=== PATIENT | female | born 1930 | race Caucasian/White ===

== ENCOUNTER 2016-10-31 13:24 | Inpatient (IN) | payer MEDICARE, BC ==
[2016-11-01] MEDS ORDERED: AMLO2.5T PO (09:28)
[2016-11-01] MEDS ORDERED: GAS-80CH CHEW (09:28)
[2016-11-01] MEDS ORDERED: ASPI-147 PO (09:28)
[2016-11-01] MEDS ORDERED: CHOL20003 PO (09:28)
[2016-11-01] MEDS ORDERED: CAL-150C PO (09:28)
[2016-11-01] MEDS ORDERED: LUTE25CA PO (09:28)
[2016-11-01] MEDS ORDERED: OMEP20TA PO (09:28)
[2016-11-01] MEDS ORDERED: CYAN1TAB24 PO (09:28)
[2016-11-01] MEDS ORDERED: LOSA100T PO (09:28)
[2016-11-01] MEDS ORDERED: ACET500C PO (09:28)
[2016-11-01] MEDS ORDERED: FLOR250C PO (09:28)
[2016-11-01] MEDS ORDERED: CENTTAB PO (09:28)
[2016-11-11] MEDS ORDERED: ONDANSETRON HCL 4 MG/2 ML VIAL IV PUSH ONE (09:58)
[2016-11-11] MEDS ORDERED: NEOSTIGMINE 3 MG/3 ML SYR IV ONE (09:58)
[2016-11-11] MEDS ORDERED: PROPOFOL 200 MG/20 ML AMP IV ONE (09:58)
[2016-11-11] MEDS ORDERED: ePHEDrine/NS 25 MG/5 ML SYR IV ONE (09:58)
[2016-11-11] MEDS ORDERED: LACTATED RINGER'S 1000 ML INJ 2,000 ML IV ONE (09:58)
[2016-11-11] MEDS ORDERED: VANCOMYCIN 1000 MG/NS 250 ML (for <70 kg) IV SCH ×2 (11:00)
[2016-11-11] MEDS ORDERED: INSULIN HUMAN REGULAR 1,000 UNITS/10 ML VIAL SQ PRN (11:00)
[2016-11-11] MEDS ORDERED: SODIUM CHLORID 0.9% 500 ML IV SCH (11:00)
[2016-11-11] MEDS ORDERED: CHLORHEXIDINE GLUCONATE 4% SOLN 120 ML BTL TOP SCH (11:00)
[2016-11-11] MEDS ORDERED: METOPROLOL TARTRATE 25 MG TAB PO PRN (11:00)
[2016-11-11] MEDS ORDERED: LACTATED RINGER'S 1000 ML IV SCH (11:00)
[2016-11-11] MEDS ORDERED: ceFAZolin 2 GM PREMIX 50 ML IV SCH (11:00)
[2016-11-11 11:21] VITALS: BP 159/73; PULSE 101; RESP 20; TEMP 98.1; O2SAT 98
[2016-11-11] MEDS ORDERED: GENTAMICIN SULFATE 80 MG/2 ML VIAL ONE (11:55)
[2016-11-11] MEDS ORDERED: ACETAMINOPHEN 1000 MG/100 ML VIAL IV ONE (12:14)
[2016-11-11] MEDS ORDERED: SODIUM CHLORIDE 0.9% FLUSH 5 ML FLUSH IVF PRN (14:00)
[2016-11-11] MEDS ORDERED: BEDSIDE COMMODE1 MI1 (14:00)
[2016-11-11] MEDS ORDERED: NALOXONE HCL 0.4 MG/ML AMP IV PRN (14:00)
[2016-11-11] MEDS: PCA - TOTAL MG MORPHINE DELIVERED PER SHIFT SCH ×2 (14:00→22:00)
[2016-11-11] MEDS: SODIUM CHLORIDE 0.9% FLUSH 5 ML FLUSH IVF SCH ×2 (14:00→21:00)
[2016-11-11] MEDS ORDERED: MORPHINE SULFATE 30 MG/30 ML PCA IV SCH (14:00)
[2016-11-11] MEDS ORDERED: SIMETHICONE 80 MG CHEWABLE TAB CHEW PRN (14:00)
[2016-11-11] MEDS ORDERED: ZOLPIDEM TARTRATE 5 MG TAB PO PRN (14:00)
[2016-11-11] MEDS ORDERED: ALUMINUM/MAGNESIUM/SIMETH 30 ML CUP PO PRN (14:00)
[2016-11-11] MEDS ORDERED: ONDANSETRON HCL 4 MG/2 ML VIAL IVP PRN (14:00)
[2016-11-11] MEDS ORDERED: Post-op Orders (for Pharmacy) MISC XX ONE (14:00)
--- NOTE | 2016-11-11 14:01 | HHI.FF ---
Face to Face Verification Diagnosis: (1) Osteoarthritis of left hip Physical Therapy Gait training Hip: Total hip, Protocol: Left, Posterior hip precautions Canvas Knee Splint: Other (when sleeping at night for first 4 weeks ) Right LE Weight Bearing: WB as tolerated Left LE Weight Bearing: WB as tolerated Nursing RN Days per Week: 3 x Week(s): 2 Nursing: Dressing changes (clean incision with alcohol and apply dry sterile dressing ) Additional Instructions Pt/INR q Friday and , call or text results to Caron MCDERMOTT [phone] Goal INR 1.5-1.8 I have seen patient Yanet Nadia Pereira on 11/11/16. My clinical findings support the need for the requested home health care services because: High risk of falls I certify that my clinical findings support that this patient is homebound because: Post-op weakness Unsteady gait/balance Rodolfo Randle MD Nov 11, 2016 14:01
[2016-11-11] MEDS ORDERED: *morphine SULFATE 8 MG/ML PERIprocedure ONLY ONE (14:07)
[2016-11-11] MEDS ORDERED: fentaNYL CITRATE 250 MCG/5 ML AMP ONE (14:09)
[2016-11-11] MEDS ORDERED: DO NOT ADM ANY ANTICOAGULANT DRUGS XX PRN (14:15)
[2016-11-11] MEDS ORDERED: PILL SPLITTER OTHER PRN (14:30)
[2016-11-11] MEDS: LACTATED RINGER'S 1000 ML INJ 1,000 ML IV SCH (14:30)
--- NOTE | 2016-11-11 15:07 | RADRPT ---
EXAM DATE/TIME: 11/11/2016 13:59 [place] COMPARISON: No previous studies available for comparison. INDICATIONS : Post-op left hip replacement. MEDICAL HISTORY : None. SURGICAL HISTORY : Hysterectomy. Appendectomy. ENCOUNTER: Initial ACUITY: 1 day PAIN SCORE: Non-responsive. LOCATION: Left hip. FINDINGS: 2 AP views of the pelvis were obtained as well as a crosstable lateral view of the left hip. This dem onstrates the patient is status post bilateral hip arthroplasty. This is remote on the right and new on the left with surrounding soft tissue swelling and gas. The femoral acetabular components are inta ct and in normal alignment. There is diffuse osteopenia. CONCLUSION: Expected postoperative changes status post left hip arthroplasty. Milton Muñiz MD on November 11, 2016 at 15:04 Board Certified Radiologist. This report was verified electronically.
--- NOTE | 2016-11-11 17:47 | HHI.PR ---
Immediate Post Op Note Procedure Date: Nov 11, 2016 Pre Op Diagnosis: L Hip OA Post Op Diagnosis: Same Surgeon: Rama [employer] Car Driver(s): Caron Correa PA-C Procedure: L THR Complications: None Specimen(s) removed: None Estimated blood loss: 200 cc Anesthesia: General Drains: None Patient to: PACU Patient Condition: Good Implant/Devices: SEE IMPLANT LOG (if applicable) Date/Time of Procedure: SEE SURGICAL CARE RECORD Rodolfo Randle MD Nov 11, 2016 17:47
[2016-11-11 20:21] VITALS: BP 143/66; PULSE 84; RESP 18; TEMP 97.1; O2SAT 98
--- NOTE | 2016-11-11 20:32 | PD.CONS ---
HPI Service [facility] Hospitalists Consult Requested By Rodolfo Hodgson Reason for Consult Medical management Primary Care Physician Non-Staff Diagnoses: History of Present Illness This is an 86-year-old female with past medical history significant for ARTHRITIS of the left hip stated below presents to [facility] for elective left hip arthroplasty. The patient states that she has had pain in the left hip for several years. The patient. With Dr. Reilly and conservative measures for treatment failed. The patient otherwise denies any chest pain, shortness of breath, pain in left hip is minimal except when she moves extremity. States she has intact sensations of lower extremities. Denies cough, abdominal pain or diarrhea as well as dysuria. Review of Systems Except as stated in HPI: all other systems reviewed are Neg Past Family Social History Allergies: Coded Allergies: Erythromycin (Verified Allergy, Severe, STOMACH UPSET, 11/01/16) Amoxicillin (Verified Adverse Reaction, Severe, Diarrhea, 11/01/16) Epinephrine (Verified Adverse Reaction, Severe, INCREASE HEART RATE, ) Uncoded Allergies: SPLENDA (Allergy, Severe, Swelling, 11/20/12) Past Medical History Breast cancer- 10 years ago treated with lumpectomy and radiation. Left arm Lymphedema HTN Arthritis Skin cancer Diverticulosis Gastritis/GERD C difficile diarrhea- 2012 Past Surgical History Hysterectomy Appendectomy Right hip replacement - 10 years ago Lumpectomy Cataract Carpal tunnel surgery Reported Medications 1. Acetaminophen 500 mg by mouth every 4 hours when necessary for pain 1-7. 2. Losartan 100 mg by mouth daily. 3. Crestor 2050 minutes by mouth daily. 4. Simethicone 80 mg 2 4 times a day when necessary for retention. 5. Amlodipine 2.5 mg by mouth daily. 6. Multivitamins 1 tab by mouth daily. 7. Aspirin 81 mg by mouth daily. 8. Lutein - Zeaxanthin 25 - 5 mg po daily 9. Omeprazole 20 mg by mouth daily. 10. Calcium Citrate 150 mg by mouth daily 11. Cyanocobalamin 500 g by mouth daily. 12. Cholecalciferol 2000 units by mouth daily. Active Ordered Medications Current Medications Medications (Trade) Dose Ordered Sig/Nighat Route Start Time Stop Time Status Last Admin (Hibiclens 4% Top Soln) 1 applic ONCE TOP 11/11/16 11:00 11/14/16 10:59 (Norvasc) 2.5 mg DAILY PO 11/12/16 09:00 (Cozaar) 100 mg DAILY PO 11/12/16 09:00 (Protonix) 20 mg DAILY PO 11/12/16 09:00 (Mylicon Chew) 80 mg QID PRN CHEW 11/11/16 14:00 Patient Own Medication 250 ea 250 ea DAILY PO 11/12/16 09:00 Future Hold (Lr 1000 ml Inj) 1,000 ml @ 80 mls/hr [id number] IV 11/11/16 13:54 11/11/16 14:30 (NS Flush) 2 ml UNSCH PRN IVF 11/11/16 14:00 IV Flush 2 ml 2 ml BID IVF 11/11/16 14:00 (Ancef Inj/NS Inj) 100 ml @ 200 mls/hr Q6H IV 11/11/16 18:00 11/12/16 06:29 11/11/16 19:04 (Coumadin) Follow Sliding Scale... DAILY@1600 PO 11/12/16 16:00 UNV ([place] 5-325 Mg) 1 tab Q4H PRN PO 11/11/16 14:00 ([place] 5-325 Mg) 2 tab Q4H PRN PO 11/11/16 14:00 (Zofran Inj) 4 mg Q6H PRN IVP 11/11/16 14:00 (Colace) 100 mg BID PO 11/12/16 21:00 (Mag-Al Plus Susp Liq) 30 ml Q6H PRN PO 11/11/16 14:00 (Ambien) 5 mg HS PRN PO 11/11/16 14:00 (Narcan Inj) 0.4 mg UNSCH PRN IV 11/11/16 14:00 (Morphine 1 Mg/ ml LEARNING SUPPORT ASSISTANT) 30 mg UNSCH IV 11/11/16 14:00 11/11/16 14:30 LEARNING SUPPORT ASSISTANT Dosage Infused (Pha) 1 Q8HR .XX 11/11/16 14:00 Miscellaneous Information ALL NURSING DEPARTME... UNSCH PRN XX 11/11/16 14:15 11/12/16 14:14 (Pill Splitter) 1 ea UNSCH PRN OTHER 11/11/16 14:30 (Coumadin Booklet) 1 ONCE ONCE XX 11/12/16 16:00 11/12/16 16:01 Family History Patient states that patient's mother of lung cancer although she was a nonsmoker. Father of prostate cancer. Social History She denies smoking. Patient drinks a glass of wine with dinner. Physical Exam Vital Signs Vital Signs Date Time Temp Pulse Resp B/P Pulse Ox O2 Delivery O2 Flow Rate FiO2 11/11/16 17:00 97.9 92 14 119/70 97 Room Air 11/11/16 16:00 77 14 149/76 100 11/11/16 15:00 77 12 145/72 99 11/11/16 14:45 66 12 153/75 99 11/11/16 14:30 80 14 158/78 99 11/11/16 14:30 12 11/11/16 14:15 101 14 154/81 99 11/11/16 14:00 79 12 152/88 99 Nasal Cannula 2 11/11/16 13:57 97.5 86 12 145/90 98 Nasal Cannula 2 11/11/16 11:21 98.1 101 20 159/73 98 Physical Exam GENERAL: This is a well-nourished, well-developed patient, in no apparent distress. SKIN: No rashes, ecchymoses or lesions. Cool and dry. HEAD: Atraumatic. Normocephalic. No temporal or scalp tenderness. EYES: Pupils equal round and reactive. Extraocular motions intact. No scleral icterus. No injection or drainage. ENT: Nose without bleeding, purulent drainage or septal hematoma. Throat without erythema, tonsillar hypertrophy or exudate. Uvula midline. Airway patent. NECK: Trachea midline. No JVD or lymphadenopathy. Supple, nontender, no meningeal signs. CARDIOVASCULAR: Regular rate and rhythm without murmurs, gallops, or rubs. RESPIRATORY: Clear to auscultation. Breath sounds equal bilaterally. No wheezes , rales, or rhonchi. GASTROINTESTINAL: Abdomen soft, non-tender, nondistended. No hepato-splenomegaly , or palpable masses. No guarding. MUSCULOSKELETAL: Extremities without clubbing, cyanosis, or edema. No joint tenderness, effusion, or edema noted. No calf tenderness. Negative Homans sign bilaterally. There is a dressing covering the surgical incision which is clean , dry and intact. There are good pulses in bilateral lower extremities. NEUROLOGICAL: Awake and alert. Cranial nerves II through XII intact. Motor and sensory grossly within normal limits. Five out of 5 muscle strength in all muscle groups. Normal speech. Assessment of the left lower extremity is limited secondary to pain. Laboratory Laboratory Tests Test 11/11/16 11:18 Blood Type A NEGATIVE Antibody Screen NEGATIVE Crossmatch Leukocyte-Reduced Red Blood Cells Blood Bank Comment Imaging Last Impressions Hip and Pelvis X-Ray 11/11/16 0000 Signed Impressions: Service Date/Time: Friday, November 11, 2016 13:59 - CONCLUSION: Expected postoperative changes status post left hip arthroplasty. Milton Muñiz MD Reviewed by me Assessment and Plan Problem List: (1) Osteoarthritis of left hip ICD Code: M16.12 Status: Acute Plan: The patient is status post left hip arthroplasty. On tingling and pain control as per orthopedic surgery recommendations. The patient currently on a morphine LEARNING SUPPORT ASSISTANT pump. (2) HTN (hypertension) ICD Code: I10 Status: Acute Plan: Her pressure slightly elevated into the 150s systolic.. Continue home antihypertensive medications. The patient currently on losartan 100 mg by mouth daily. We'll consider starting another antihypertensive if BP remains elevated. (3) H/O Clostridium difficile infection ICD Code: Z86.19 Status: Acute Plan: Continue probiotics including yodit store and simethicone for gas retention. (4) GERD (gastroesophageal reflux disease) ICD Code: K21.9 Status: Acute Plan: No active symptoms of GERD. Continue PPI. Problem Qualifiers (1) Osteoarthritis of left hip: Qualified Code: M16.12 - Primary osteoarthritis of left hip (2) HTN (hypertension): Qualified Code: I10 - Essential hypertension Cassius Velázquez MD Nov 11, 2016 20:32
[2016-11-11 21:56] LABS: AUTOMATED NEUTROPHIL # 8.7 TH/MM3 (1.8-7.7); BASOPHIL % 0.1 % (0.0-2.0); EOSINOPHIL % 0.1 % (0.0-4.0); HEMATOCRIT 35.3 % (35.0-46.0); HEMO FLAGS DIFF FINAL; LYMPH % 8.7 % (9.0-44.0); LYMPHOCYTE # 0.9 TH/MM3 (1.0-4.8); MEAN CELL VOLUME 95.3 FL (80.0-100.0); MEAN CORPUSCULAR HEMOGLOBIN 33.2 PG (27.0-34.0); MEAN CORPUSCULAR HGB CONC 34.8 % (32.0-36.0); MONO % 6.5 % (0.0-8.0); NEUT % 84.6 % (16.0-70.0); PLATELET COUNT 184 TH/MM3 (150-450); RED CELL DISTRIBUTION WIDTH 11.9 % (11.6-17.2); WHITE BLOOD COUNT 10.3 TH/MM3 (4.0-11.0)
[2016-11-11 22:11] LABS: ALKALINE PHOSPHATASE 76 U/L (45-117); ALT (GPT) 58 U/L (10-53); ANION GAP 7 MEQ/L (5-15); AST (GOT) 52 U/L (15-37); BICARBONATE 27.7 MEQ/L (21.0-32.0); BLOOD UREA NITROGEN 12 MG/DL (7-18); CHLORIDE 105 MEQ/L (98-107); GLOMERULAR FILTRATION RATE 69 ML/MIN (>89); MAGNESIUM 1.7 MG/DL (1.5-2.5); POTASSIUM 3.8 MEQ/L (3.5-5.1); SODIUM (NA) 140 MEQ/L (136-145); TOTAL BILIRUBIN ADULT 0.7 MG/DL (0.2-1.0)
[2016-11-12] VITALS (9 sets, daily range): BP systolic 90–146; BP diastolic 47–71; PULSE 88–114; RESP 16–19; TEMP 97.9–99.7; O2SAT 94–98
[2016-11-12] MEDS: PCA - TOTAL MG MORPHINE DELIVERED PER SHIFT SCH (05:51)
--- NOTE | 2016-11-12 06:51 | PD.ORT.PN ---
Subjective Subjective Remarks POD#1 L THR No sob,no chest pain Explained to patient operative findings Objective Vitals Vital Signs Date Time Temp Pulse Resp B/P Pulse Ox O2 Delivery O2 Flow Rate FiO2 11/12/16 04:00 99.3 98 17 146/67 96 11/12/16 01:46 95 11/12/16 00:00 99.0 88 16 136/71 95 11/11/16 20:21 97.1 84 18 143/66 98 11/11/16 17:00 97.9 92 14 119/70 97 Room Air 11/11/16 16:00 77 14 149/76 100 11/11/16 15:00 77 12 145/72 99 11/11/16 14:45 66 12 153/75 99 11/11/16 14:30 80 14 158/78 99 11/11/16 14:30 12 11/11/16 14:15 101 14 154/81 99 11/11/16 14:00 79 12 152/88 99 Nasal Cannula 2 11/11/16 13:57 97.5 86 12 145/90 98 Nasal Cannula 2 11/11/16 11:21 98.1 101 20 159/73 98 I/O 11/11/16 11/11/16 11/11/16 11/12/16 11/12/16 11/12/16 07:00 15:00 23:00 07:00 15:00 23:00 Intake Total 800 ml 475 ml Output Total 250 ml Balance 550 ml 475 ml Intake IV Total 475 ml Other 800 ml Output Estimated Blood Loss 250 ml # Voids 1 Result Diagram: 11/11/16211411/11/162114 Objective Remarks N/V intact Neg basim's sign;no calf tenderness No LLD Assessment & Plan Assessment and Plan Ortho stable PT,rehab Coumadin for DVT prophylaxsis D/C home on 11/13 or 11/14 Rodolfo Randle MD Nov 12, 2016 06:51
[2016-11-12] MEDS: LOSARTAN 50 MG TAB PO SCH (08:16)
[2016-11-12] MEDS: amLODIPine BESYLATE 5 MG TAB PO SCH (08:16)
[2016-11-12] MEDS: PANTOPRAZOLE SOD 20 MG DELAYED RELEASE TAB PO SCH (08:16)
[2016-11-12 08:19] LABS: PROTHROMBIN TIME - PATIENT 11.4 SEC (9.8-11.6)
[2016-11-12] MEDS: ACETAMINOPHEN/HYDROcodone 325 MG/5 MG TAB PO PRN ×3 (08:20→17:33)
[2016-11-12 08:21] LABS: AUTOMATED NEUTROPHIL # 6.6 TH/MM3 (1.8-7.7); BASOPHIL % 0.3 % (0.0-2.0); EOSINOPHIL % 0.4 % (0.0-4.0); HEMATOCRIT 35.2 % (35.0-46.0); HEMO FLAGS DIFF FINAL; LYMPH % 13.6 % (9.0-44.0); LYMPHOCYTE # 1.1 TH/MM3 (1.0-4.8); MEAN CELL VOLUME 96.6 FL (80.0-100.0); MEAN CORPUSCULAR HEMOGLOBIN 32.5 PG (27.0-34.0); MEAN CORPUSCULAR HGB CONC 33.7 % (32.0-36.0); MONO % 6.8 % (0.0-8.0); NEUT % 78.9 % (16.0-70.0); PLATELET COUNT 171 TH/MM3 (150-450); RED BLOOD COUNT 3.65 MIL/MM3 (4.00-5.30); RED CELL DISTRIBUTION WIDTH 12.2 % (11.6-17.2); WHITE BLOOD COUNT 8.4 TH/MM3 (4.0-11.0)
[2016-11-12] MEDS: SODIUM CHLORIDE 0.9% FLUSH 5 ML FLUSH IVF SCH ×2 (08:23→21:09)
[2016-11-12] MEDS: LACTATED RINGER'S 1000 ML INJ 1,000 ML IV SCH ×2 (08:25→14:54)
[2016-11-12 08:53] LABS: ALKALINE PHOSPHATASE 75 U/L (45-117); ALT (GPT) 42 U/L (10-53); ANION GAP 6 MEQ/L (5-15); AST (GOT) 31 U/L (15-37); BLOOD UREA NITROGEN 10 MG/DL (7-18); CHLORIDE 104 MEQ/L (98-107); GLOMERULAR FILTRATION RATE 60 ML/MIN (>89); MAGNESIUM 1.7 MG/DL (1.5-2.5); POTASSIUM 3.8 MEQ/L (3.5-5.1); SODIUM (NA) 138 MEQ/L (136-145); TOTAL BILIRUBIN ADULT 0.6 MG/DL (0.2-1.0)
[2016-11-12] MEDS ORDERED: SACCHAROMYCES BOULARDII 250 MG PO SCH (09:00)
[2016-11-12] MEDS: MAGNESIUM HYDROXIDE SUSP 30 ML CUP PO SCH ×2 (11:56→21:09)
[2016-11-12] MEDS: WARFARIN SOD 5 MG TAB PO SCH (12:52)
--- NOTE | 2016-11-12 14:47 | HHI.PR ---
Subjective Remarks No major overnight events. Denies chest pain shows of breath Pain is controlled Denies abdominal pain, nausea or vomiting Objective Vitals Vital Signs Date Time Temp Pulse Resp B/P Pulse Ox O2 Delivery O2 Flow Rate FiO2 11/12/16 11:58 98.7 105 16 115/68 94 11/12/16 10:54 97 21 11/12/16 08:00 99.7 98 16 138/65 98 11/12/16 04:00 99.3 98 17 146/67 96 11/12/16 01:46 95 11/12/16 00:00 99.0 88 16 136/71 95 11/11/16 20:21 97.1 84 18 143/66 98 11/11/16 17:00 97.9 92 14 119/70 97 Room Air 11/11/16 16:00 77 14 149/76 100 11/11/16 15:00 77 12 145/72 99 I/O 11/11/16 11/11/16 11/11/16 11/12/16 11/12/16 11/12/16 07:00 15:00 23:00 07:00 15:00 23:00 Intake Total 800 ml 475 ml 540 ml Output Total 250 ml Balance 550 ml 475 ml 540 ml Intake Oral 540 ml IV Total 475 ml Other 800 ml Output Estimated Blood Loss 250 ml # Voids 1 2 Result Diagram: 11/12/16 0743 11/12/16 0743 Imaging Last Impressions Hip and Pelvis X-Ray 11/11/16 0000 Signed Impressions: Service Date/Time: Friday, November 11, 2016 13:59 - CONCLUSION: Expected postoperative changes status post left hip arthroplasty. Milton Muñiz MD Objective Remarks GENERAL: This is a well-nourished, well-developed patient, in no apparent distress. SKIN: No rashes, ecchymoses or lesions. Cool and dry. HEAD: Atraumatic. Normocephalic. No temporal or scalp tenderness. EYES: Pupils equal round and reactive. Extraocular motions intact. No scleral icterus. No injection or drainage. ENT: Nose without bleeding, purulent drainage or septal hematoma. Throat without erythema, tonsillar hypertrophy or exudate. Uvula midline. Airway patent. NECK: Trachea midline. No JVD or lymphadenopathy. Supple, nontender, no meningeal signs. CARDIOVASCULAR: Regular rate and rhythm without murmurs, gallops, or rubs. RESPIRATORY: Clear to auscultation. Breath sounds equal bilaterally. No wheezes , rales, or rhonchi. GASTROINTESTINAL: Abdomen soft, non-tender, nondistended. No hepato-splenomegaly , or palpable masses. No guarding. MUSCULOSKELETAL: Extremities without clubbing, cyanosis, or edema. No joint tenderness, effusion, or edema noted. No calf tenderness. Negative Homans sign bilaterally. There is a dressing covering the surgical incision which is clean , dry and intact. There are good pulses in bilateral lower extremities. NEUROLOGICAL: Awake and alert. Cranial nerves II through XII intact. Motor and sensory grossly within normal limits. Five out of 5 muscle strength in all muscle groups. Normal speech. Assessment of the left lower extremity is limited secondary to pain. Procedures That is post left total hip arthroplasty. Medications and IVs Current Medications Medications (Trade) Dose Ordered Sig/Nighat Route Start Time Stop Time Status Last Admin (Norvasc) 2.5 mg DAILY PO 11/12/16 09:00 11/12/16 08:16 (Cozaar) 100 mg DAILY PO 11/12/16 09:00 11/12/16 08:16 (Protonix) 20 mg DAILY PO 11/12/16 09:00 11/12/16 08:16 (Mylicon Chew) 80 mg QID PRN CHEW 11/11/16 14:00 Patient Own Medication 250 ea 250 ea DAILY PO 11/12/16 09:00 Hold (Lr 1000 ml Inj) 1,000 ml @ 80 mls/hr [id number] IV 11/11/16 13:54 11/12/16 08:25 (NS Flush) 2 ml UNSCH PRN IVF 11/11/16 14:00 (NS Flush) 2 ml BID IVF 11/11/16 14:00 (Coumadin) Follow Sliding Scale... DAILY@13 PO 11/12/16 13:00 11/12/16 12:52 ([place] 5-325 Mg) 1 tab Q4H PRN PO 11/11/16 14:00 11/12/16 08:20 ([place] 5-325 Mg) 2 tab Q4H PRN PO 11/11/16 14:00 11/12/16 12:52 (Zofran Inj) 4 mg Q6H PRN IVP 11/11/16 14:00 (Colace) 100 mg BID PO 11/12/16 21:00 (Mag-Al Plus Susp Liq) 30 ml Q6H PRN PO 11/11/16 14:00 (Ambien) 5 mg HS PRN PO 11/11/16 14:00 (Pill Splitter) 1 ea UNSCH PRN OTHER 11/11/16 14:30 (Milk Of Magnesia Liq) 30 ml BID PO 11/12/16 10:00 11/12/16 11:56 (Senokot) 17.2 mg HS PO 11/12/16 21:00 Urinary Catheter: No Vascular Central Line Catheter: No A/P Problem List: (1) Osteoarthritis of left hip ICD Code: M16.12 Status: Acute Plan: The patient is status post left hip arthroplasty. Continue pain control as per orthopedic surgery recommendations. Patient also most pain EXECUTIVE ADMINISTRATOR pump Management as per orthopedic surgery (2) HTN (hypertension) ICD Code: I10 Status: Acute Plan: Her pressure slightly elevated into the 150s systolic. Continue home antihypertensive medications. The patient currently on losartan 100 mg by mouth daily. Patient has been started on amlodipine 2.5 minutes by mouth daily. BP now much improved. (3) H/O Clostridium difficile infection ICD Code: Z86.19 Status: Acute Plan: Continue probiotics including yodit store and simethicone for gas retention. No diarrhea reported. (4) GERD (gastroesophageal reflux disease) ICD Code: K21.9 Status: Acute Plan: No active symptoms of GERD. Continue PPI. Assessment and Plan GI proph: on PPI DVT prophylaxis: SCDs, started on Coumadin by orthopedic surgery. Problem Qualifiers (1) Osteoarthritis of left hip: Qualified Code: M16.12 - Primary osteoarthritis of left hip (2) HTN (hypertension): Qualified Code: I10 - Essential hypertension (3) GERD (gastroesophageal reflux disease): Qualified Code: K21.9 - Gastroesophageal reflux disease without esophagitis Cassius Velázquez MD Nov 12, 2016 14:47
[2016-11-12] MEDS: DOCUSATE SODIUM 100 MG CAP PO SCH (21:09)
[2016-11-12] MEDS: SENNOSIDES 8.6 MG TAB PO SCH (21:09)
--- NOTE | 2016-11-12 23:24 | MP ---
cc: BASILIA RANDLE DATE OF SURGERY 11/11/16 PREOPERATIVE DIAGNOSIS Left hip severe osteoarthritis. POSTOPERATIVE DIAGNOSIS Left hip severe osteoarthritis. PROCEDURE Left total hip arthroplasty. SURGEON Tabby Randle MD ASSESSMENT CHRISTY Fonseca SPECIMENS SENT None. ESTIMATED BLOOD LOSS 200 mL COMPLICATIONS None ANESTHESIA General DRAINS None. CONDITION Stable PLAN OF ACTIVITY Per orders. PROCEDURE IN DETAIL My welder assistant CHRISTY Linn, was present for entire surgical case. She was medically necessary for entire case because of the complexity of the case and to facilitate the performance of the procedure. The BUSINESS OPERATIONS SPECIALIST at the back table was not a skill set for this case to manipulate the instruments e.g. the multiple different types of soft tissue retractors, trial implants and permanent implants. The patient was brought to the operating room had satisfactory general endotracheal anesthesia by Dr. Bang of the Department of Anesthesia. The patient was placed in the lateral decubitus position. All pressure points were well-padded. The left hip and lower extremity down to including the toes was prepped and draped in usual sterile manner. Small posterolateral exposure hip was made. All bleeders coagulated. Dissection through the skin and subcutaneous tissue. The fascia ethan and gluteus benjie was incised in line with skin incision. Great care was made to protect all soft tissues and also great care was made to protect the sciatic nerve throughout the entire operative procedure. The short external rotators were removed as a group. The hip abductors were preserved. The hip was dislocated posteriorly. Capsulotomy was performed. The patient was found to have severe osteoarthritis involving the hip joint. The main portion of the capsule was removed as was the acetabular labrum. Osteotomy was made on the neck at the appropriate level. Exposure to the acetabulum made. Sequentially initially deepened and widened with up to 46 mm in outer diameter with the hemispherical reamers. Bicentric cup Press-Fit manner was found be most stable and satisfactory. Attention brought to the femur. It was sequentially broached to a #6 standard offset broach. The patient was found to have an excellent fit and fill. Trial reduction was made with a 0 neck and a 28-mm ball. The hip was reduced. Patient was found to have satisfactory limb lengths, satisfactory stability and satisfactory range of motion of the hip. The hip was then carefully dislocated again. All trial components were removed and preparation for insertion of the components were made. The 6.0 femoral stem Biomet taper lock was placed in approximately 15 degrees of anteversion, 0 neck, 28 mm ball was assembled onto the trunnion. The patient was found to have an excellent fit and fill. The hip was then reduced. Again the patient found to have satisfactory limb lengths, satisfactory stability and satisfactory range of motion. The short external rotators were ___ back to greater trochanter with drill holes using #2 Tycron suture. The fascia ethan and gluteus benjie was approximated with #2 Tycron sutures, subcuticular layer with 0 Vicryl and 2-0 Vicryl. Skin was approximated with running subcuticular nylon. Instrument, sponge and needle count correct. The patient tolerated the procedure well and went to recovery room in stable and satisfactory condition. MD POLLY Torrez/ /1:46 PM /10:58 PM
[2016-11-13] VITALS: BP 144/73; PULSE 107; RESP 18; TEMP 100.1; O2SAT 98
[2016-11-13] MEDS: ACETAMINOPHEN/HYDROcodone 325 MG/5 MG TAB PO PRN ×5 (02:20→20:56)
[2016-11-13] MEDS: LACTATED RINGER'S 1000 ML INJ 1,000 ML IV SCH ×3 (03:24→22:24)
[2016-11-13 06:59] LABS: INTERNATIONAL NORMALIZED RATIO 1.1 RATIO; PROTHROMBIN TIME - PATIENT 12.2 SEC (9.8-11.6)
--- NOTE | 2016-11-13 07:38 | PD.ORT.PN ---
Subjective Subjective Remarks pt complains of post op left hip pain no chest pain, no SOB states she has only been able to take a few steps with PT Objective Vitals Vital Signs Date Time Temp Pulse Resp B/P Pulse Ox O2 Delivery O2 Flow Rate FiO2 11/13/16 00:00 100.1 107 18 144/73 98 11/12/16 20:57 98.8 94 19 97/54 96 11/12/16 16:00 97.9 114 16 90/47 95 11/12/16 11:58 98.7 105 16 115/68 94 11/12/16 10:54 97 21 11/12/16 08:00 99.7 98 16 138/65 98 I/O 11/12/16 11/12/16 11/12/16 11/13/16 11/13/16 11/13/16 07:00 15:00 23:00 07:00 15:00 23:00 Intake Total 540 ml 1200 ml 360 ml Balance 540 ml 1200 ml 360 ml Intake Oral 540 ml 1200 ml 360 ml # Voids 2 3 1 # Bowel Movements 0 0 Result Diagram: 11/12/16 0743 11/12/16 0743 Other Results Laboratory Tests Test 11/12/16 11/13/16 07:43 06:05 Prothrombin Time 11.4 SEC 12.2 SEC (9.8-11.6) (9.8-11.6) Prothromb Time International 1.0 RATIO 1.1 RATIO Ratio Objective Remarks left hip dressings dry and intact N/V intact Neg basim's sign;no calf tenderness No LLD Assessment & Plan Assessment and Plan POD # 2 s/p L JOSSELIN PT,rehab - Coumadin for DVT prophylaxsis ortho stable anticipate discharge home tomorrow with [facility] Caron Correa Nov 13, 2016 07:38
[2016-11-13] MEDS: MAGNESIUM HYDROXIDE SUSP 30 ML CUP PO SCH ×2 (07:42→10:44)
[2016-11-13] MEDS: DOCUSATE SODIUM 100 MG CAP PO SCH ×2 (07:42→20:56)
[2016-11-13] MEDS: PANTOPRAZOLE SOD 20 MG DELAYED RELEASE TAB PO SCH (07:43)
[2016-11-13] MEDS: amLODIPine BESYLATE 5 MG TAB PO SCH (07:43)
[2016-11-13] MEDS: LOSARTAN 50 MG TAB PO SCH (07:44)
[2016-11-13 08:00] VITALS: BP 116/58; PULSE 90; RESP 18; TEMP 90; O2SAT 96
[2016-11-13] MEDS: SODIUM CHLORIDE 0.9% FLUSH 5 ML FLUSH IVF SCH ×2 (09:00→20:56)
[2016-11-13 12:00] VITALS: BP 112/52; PULSE 79; RESP 18; TEMP 97.9; O2SAT 98
[2016-11-13] MEDS: WARFARIN SOD 5 MG TAB PO SCH (15:20)
[2016-11-13 16:00] VITALS: BP 128/60; PULSE 90; RESP 18; TEMP 98.5; O2SAT 95
--- NOTE | 2016-11-13 17:26 | HHI.PR ---
Subjective Remarks Patient had a low-grade temp with a MAXIMUM TEMPERATURE of 100.1. Patient has not been able to move her bowels yet. Denies chest pain or shots of breath. Vital signs otherwise stable. Objective Vitals Vital Signs Date Time Temp Pulse Resp B/P Pulse Ox O2 Delivery O2 Flow Rate FiO2 11/13/16 16:00 98.5 90 18 128/60 95 11/13/16 12:00 97.9 79 18 112/52 98 11/13/16 08:00 90.0 90 18 116/58 96 11/13/16 00:00 100.1 107 18 144/73 98 11/12/16 20:57 98.8 94 19 97/54 96 I/O 11/12/16 11/12/16 11/12/16 11/13/16 11/13/16 11/13/16 07:00 15:00 23:00 07:00 15:00 23:00 Intake Total 540 ml 1200 ml 360 ml 600 ml Balance 540 ml 1200 ml 360 ml 600 ml Intake Oral 540 ml 1200 ml 360 ml 600 ml # Voids 2 3 1 3 # Bowel Movements 0 0 0 Result Diagram: 11/12/16 0743 11/12/16 0743 Imaging Last Impressions Hip and Pelvis X-Ray 11/11/16 0000 Signed Impressions: Service Date/Time: Friday, November 11, 2016 13:59 - CONCLUSION: Expected postoperative changes status post left hip arthroplasty. Milton Muñiz MD Objective Remarks GENERAL: This is a well-nourished, well-developed patient, in no apparent distress. SKIN: No rashes, ecchymoses or lesions. Cool and dry. HEAD: Atraumatic. Normocephalic. No temporal or scalp tenderness. EYES: Pupils equal round and reactive. Extraocular motions intact. No scleral icterus. No injection or drainage. ENT: Nose without bleeding, purulent drainage or septal hematoma. Throat without erythema, tonsillar hypertrophy or exudate. Uvula midline. Airway patent. NECK: Trachea midline. No JVD or lymphadenopathy. Supple, nontender, no meningeal signs. CARDIOVASCULAR: Regular rate and rhythm without murmurs, gallops, or rubs. RESPIRATORY: Clear to auscultation. Breath sounds equal bilaterally. No wheezes , rales, or rhonchi. GASTROINTESTINAL: Abdomen soft, non-tender, nondistended. No hepato-splenomegaly , or palpable masses. No guarding. MUSCULOSKELETAL: Extremities without clubbing, cyanosis, or edema. No joint tenderness, effusion, or edema noted. No calf tenderness. Negative Homans sign bilaterally. There is a dressing covering the surgical incision which is clean , dry and intact. There are good pulses in bilateral lower extremities. NEUROLOGICAL: Awake and alert. Cranial nerves II through XII intact. Motor and sensory grossly within normal limits. Five out of 5 muscle strength in all muscle groups. Normal speech. Assessment of the left lower extremity is limited secondary to pain. Procedures That is post left total hip arthroplasty. Medications and IVs Current Medications Medications (Trade) Dose Ordered Sig/Nighat Route Start Time Stop Time Status Last Admin (Norvasc) 2.5 mg DAILY PO 11/12/16 09:00 11/13/16 07:43 (Cozaar) 100 mg DAILY PO 11/12/16 09:00 11/13/16 07:44 (Protonix) 20 mg DAILY PO 11/12/16 09:00 11/13/16 07:43 (Mylicon Chew) 80 mg QID PRN CHEW 11/11/16 14:00 Patient Own Medication 250 ea 250 ea DAILY PO 11/12/16 09:00 Hold (Lr 1000 ml Inj) 1,000 ml @ 80 mls/hr [id number] IV 11/11/16 13:54 11/12/16 08:25 (NS Flush) 2 ml UNSCH PRN IVF 11/11/16 14:00 (NS Flush) 2 ml BID IVF 11/11/16 14:00 11/12/16 21:09 (Coumadin) Follow Sliding Scale... DAILY@13 PO 11/12/16 13:00 11/13/16 15:20 ([place] 5-325 Mg) 1 tab Q4H PRN PO 11/11/16 14:00 11/13/16 16:55 ([place] 5-325 Mg) 2 tab Q4H PRN PO 11/11/16 14:00 11/13/16 07:44 (Zofran Inj) 4 mg Q6H PRN IVP 11/11/16 14:00 (Colace) 100 mg BID PO 11/12/16 21:00 11/13/16 07:42 (Mag-Al Plus Susp Liq) 30 ml Q6H PRN PO 11/11/16 14:00 (Ambien) 5 mg HS PRN PO 11/11/16 14:00 (Pill Splitter) 1 ea UNSCH PRN OTHER 11/11/16 14:30 (Milk Of Magnesia Liq) 30 ml BID PO 11/12/16 10:00 11/13/16 10:44 (Senokot) 17.2 mg HS PO 11/12/16 21:00 11/12/16 21:09 A/P Problem List: (1) Osteoarthritis of left hip ICD Code: M16.12 Status: Acute Plan: The patient is status post left hip arthroplasty. Continue pain control as per orthopedic surgery recommendations. Patient off ORCHESTRA DIRECTOR pump Management as per orthopedic surgery Pain controlled (2) HTN (hypertension) ICD Code: I10 Status: Acute Plan: Her pressure slightly elevated into the 150s systolic. Continue home antihypertensive medications. The patient currently on losartan 100 mg by mouth daily. Patient has been started on amlodipine 2.5 minutes by mouth daily. BP now much improved. (3) H/O Clostridium difficile infection ICD Code: Z86.19 Status: Acute Plan: Continue probiotics including yodit store and simethicone for gas retention. No diarrhea reported. (4) GERD (gastroesophageal reflux disease) ICD Code: K21.9 Status: Acute Plan: No active symptoms of GERD. Continue PPI. (5) Constipation ICD Code: K59.00 Status: Acute Plan: Activity due to his decreased ambulation and medication induced. Continue senna, Colace, milk of magnesia. I will add MiraLAX as needed. (6) SIRS (systemic inflammatory response syndrome) ICD Code: R65.10 Status: Acute Plan: Patient has low-grade temp and heart rate up to 107. Check urinalysis. Be secondary to the medication caused by surgical intervention Assessment and Plan GI proph: on PPI DVT prophylaxis: SCDs, started on Coumadin by orthopedic surgery. Problem Qualifiers (1) Osteoarthritis of left hip: Qualified Code: M16.12 - Primary osteoarthritis of left hip (2) HTN (hypertension): Qualified Code: I10 - Essential hypertension (3) GERD (gastroesophageal reflux disease): Qualified Code: K21.9 - Gastroesophageal reflux disease without esophagitis (4) Constipation: Qualified Code: K59.03 - Drug-induced constipation Yeboah Winn,Cassius MD Nov 13, 2016 17:26
[2016-11-13 18:21] LABS: BLOOD, URINE NEG (NEG); COMMENT (UR) CULT NOT INDICATED; CULTURE IF INDICATED CULT NOT INDICATED; GLUCOSE,URINE NEG (NEG); HYALINE CAST, URINE 2 /lpf (RARE); KETONE, URINE NEG (NEG); MUCUS URINE FEW /lpf (OCC); NITRITE,URINE NEG (NEG); SQUAMOUS EPITHELIAL CELL URINE <1 /hpf (0-5); URINE COLOR YELLOW (YELLW/STRAW)
[2016-11-13] MEDS ORDERED: POLYETHYLENE GLYCOL 17 GM PKG PO PRN (19:00)
[2016-11-13 20:00] VITALS: BP 122/61; PULSE 93; RESP 18; TEMP 99.3; O2SAT 95
[2016-11-13] MEDS: SENNOSIDES 8.6 MG TAB PO SCH (20:56)
[2016-11-14 00:22] VITALS: BP 114/61; PULSE 91; RESP 18; TEMP 98.4; O2SAT 96
[2016-11-14] MEDS: ACETAMINOPHEN/HYDROcodone 325 MG/5 MG TAB PO PRN ×3 (02:11→13:32)
[2016-11-14 05:12] LABS: AUTOMATED NEUTROPHIL # 5.7 TH/MM3 (1.8-7.7); BASOPHIL % 0.3 % (0.0-2.0); EOSINOPHIL # 0.1 TH/MM3 (0-0.4); HEMATOCRIT 28.7 % (35.0-46.0); HEMO FLAGS DIFF FINAL; LYMPH % 15.7 % (9.0-44.0); LYMPHOCYTE # 1.2 TH/MM3 (1.0-4.8); MEAN CELL VOLUME 95.3 FL (80.0-100.0); MEAN CORPUSCULAR HEMOGLOBIN 33.5 PG (27.0-34.0); MEAN CORPUSCULAR HGB CONC 35.1 % (32.0-36.0); MONO % 8.5 % (0.0-8.0); NEUT % 74.5 % (16.0-70.0); PLATELET COUNT 149 TH/MM3 (150-450); RED BLOOD COUNT 3.02 MIL/MM3 (4.00-5.30); RED CELL DISTRIBUTION WIDTH 11.9 % (11.6-17.2); WHITE BLOOD COUNT 7.6 TH/MM3 (4.0-11.0)
[2016-11-14 05:23] LABS: INTERNATIONAL NORMALIZED RATIO 1.1 RATIO; PROTHROMBIN TIME - PATIENT 11.7 SEC (9.8-11.6)
[2016-11-14 08:00] VITALS: BP 121/65; PULSE 83; RESP 18; TEMP 98.7; O2SAT 94
[2016-11-14] MEDS: MAGNESIUM HYDROXIDE SUSP 30 ML CUP PO SCH (08:12)
[2016-11-14] MEDS: LOSARTAN 50 MG TAB PO SCH (08:13)
[2016-11-14] MEDS: DOCUSATE SODIUM 100 MG CAP PO SCH (08:13)
[2016-11-14] MEDS: amLODIPine BESYLATE 5 MG TAB PO SCH (08:13)
[2016-11-14] MEDS: SODIUM CHLORIDE 0.9% FLUSH 5 ML FLUSH IVF SCH (08:13)
[2016-11-14] MEDS: PANTOPRAZOLE SOD 20 MG DELAYED RELEASE TAB PO SCH (08:13)
[2016-11-14] MEDS ORDERED: NORC5TAB PO (09:19)
--- NOTE | 2016-11-14 10:26 | PD.ORT.PN ---
Subjective Subjective Remarks pt complains of post op left hip pain, doing better, ready to go home today no chest pain, no SOB Objective Vitals Vital Signs Date Time Temp Pulse Resp B/P Pulse Ox O2 Delivery O2 Flow Rate FiO2 11/14/16 00:22 98.4 91 18 114/61 96 11/13/16 20:00 99.3 93 18 122/61 95 11/13/16 16:00 98.5 90 18 128/60 95 11/13/16 12:00 97.9 79 18 112/52 98 I/O 11/13/16 11/13/16 11/13/16 11/14/16 11/14/16 11/14/16 07:00 15:00 23:00 07:00 15:00 23:00 Intake Total 600 ml 1000 ml Balance 600 ml 1000 ml Intake Oral 600 ml 1000 ml # Voids 3 5 # Bowel Movements 0 1 Result Diagram: 11/14/16 0437 11/12/16 0743 Other Results Laboratory Tests Test 11/14/16 04:37 Prothrombin Time 11.7 SEC (9.8-11.6) Prothromb Time International 1.1 RATIO Ratio Objective Remarks seen by Dr. Rodolfo Randle left hip dressings dry and intact N/V intact Neg basim's sign;no calf tenderness No LLD Assessment & Plan Assessment and Plan POD # 3 s/p L JOSSELIN PT,rehab - Coumadin for DVT prophylaxsis ortho stable discharge home today with [facility] Caron Correa Nov 14, 2016 10:26
[2016-11-14 12:00] VITALS: BP 115/55; PULSE 87; RESP 18; TEMP 98.6; O2SAT 95
[2016-11-14] MEDS ORDERED: CIPROFLOXACIN 500 MG TAB PO SCH (12:00)
--- NOTE | 2016-11-14 12:25 | HHI.PR ---
Subjective Remarks no further temps pain controlled patient denies cough/cp/sob denies diarrhea, nausea or vomiting Objective Vitals Vital Signs Date Time Temp Pulse Resp B/P Pulse Ox O2 Delivery O2 Flow Rate FiO2 11/14/16 08:00 98.7 83 18 121/65 94 11/14/16 00:22 98.4 91 18 114/61 96 11/13/16 20:00 99.3 93 18 122/61 95 11/13/16 16:00 98.5 90 18 128/60 95 I/O 11/13/16 11/13/16 11/13/16 11/14/16 11/14/16 11/14/16 07:00 15:00 23:00 07:00 15:00 23:00 Intake Total 600 ml 1000 ml Balance 600 ml 1000 ml Intake Oral 600 ml 1000 ml # Voids 3 5 # Bowel Movements 0 1 Result Diagram: 11/14/16 0437 11/12/16 0743 Imaging Last Impressions Hip and Pelvis X-Ray 11/11/16 0000 Signed Impressions: Service Date/Time: Friday, November 11, 2016 13:59 - CONCLUSION: Expected postoperative changes status post left hip arthroplasty. Milton Muñiz MD Objective Remarks GENERAL: This is a well-nourished, well-developed patient, in no apparent distress. SKIN: No rashes, ecchymoses or lesions. Cool and dry. HEAD: Atraumatic. Normocephalic. No temporal or scalp tenderness. EYES: Pupils equal round and reactive. Extraocular motions intact. No scleral icterus. No injection or drainage. ENT: Nose without bleeding, purulent drainage or septal hematoma. Throat without erythema, tonsillar hypertrophy or exudate. Uvula midline. Airway patent. NECK: Trachea midline. No JVD or lymphadenopathy. Supple, nontender, no meningeal signs. CARDIOVASCULAR: Regular rate and rhythm without murmurs, gallops, or rubs. RESPIRATORY: Clear to auscultation. Breath sounds equal bilaterally. No wheezes , rales, or rhonchi. GASTROINTESTINAL: Abdomen soft, non-tender, nondistended. No hepato-splenomegaly , or palpable masses. No guarding. MUSCULOSKELETAL: Extremities without clubbing, cyanosis, or edema. No joint tenderness, effusion, or edema noted. No calf tenderness. Negative Homans sign bilaterally. There is a dressing covering the surgical incision which is clean , dry and intact. There are good pulses in bilateral lower extremities. NEUROLOGICAL: Awake and alert. Cranial nerves II through XII intact. Motor and sensory grossly within normal limits. Five out of 5 muscle strength in all muscle groups. Normal speech. Assessment of the left lower extremity is limited secondary to pain. Procedures That is post left total hip arthroplasty. Urinary Catheter: No Vascular Central Line Catheter: No A/P Problem List: (1) Osteoarthritis of left hip ICD Code: M16.12 Status: Acute Plan: The patient is status post left hip arthroplasty. Continue pain control as per orthopedic surgery recommendations. Patient off FLUSH TESTER pump Management as per orthopedic surgery Pain controlled (2) HTN (hypertension) ICD Code: I10 Status: Acute Plan: Her pressure slightly elevated into the 150s systolic. Continue home antihypertensive medications. The patient currently on losartan 100 mg by mouth daily. Patient has been started on amlodipine 2.5 mg by mouth daily. Bp stable. (3) H/O Clostridium difficile infection ICD Code: Z86.19 Status: Acute Plan: Continue probiotics including yodit store and simethicone for gas retention. No diarrhea reported. (4) GERD (gastroesophageal reflux disease) ICD Code: K21.9 Status: Acute Plan: No active symptoms of GERD. Continue PPI. (5) Constipation ICD Code: K59.00 Status: Acute Plan: Activity due to his decreased ambulation and medication induced. Continue senna, Colace, milk of magnesia. I will add MiraLAX as needed. 11/14 Patient had a BM - Continue stool softeners and laxatives as above (6) SIRS (systemic inflammatory response syndrome) ICD Code: R65.10 Status: Acute Plan: Patient has low-grade temp and heart rate up to 107. urinalysis negative Assessment and Plan GI proph: on PPI DVT prophylaxis: SCDs, started on Coumadin by orthopedic surgery. Discharge Planning Clear for discharge Problem Qualifiers (1) Osteoarthritis of left hip: Qualified Code: M16.12 - Primary osteoarthritis of left hip (2) HTN (hypertension): Qualified Code: I10 - Essential hypertension (3) GERD (gastroesophageal reflux disease): Qualified Code: K21.9 - Gastroesophageal reflux disease without esophagitis (4) Constipation: Qualified Code: K59.03 - Drug-induced constipation Cassius Velázquez MD Nov 14, 2016 12:25
[2016-11-14] MEDS: WARFARIN SOD 5 MG TAB PO SCH (13:32)
--- NOTE | 2016-12-05 17:14 | HHI.DS ---
Discharge Summary Admission Date Nov 11, 2016 at 10:18 Discharge Date: Nov 14, 2016 Admitting Diagnosis Left hip osteoarthritis Diagnosis: (1) Osteoarthritis of left hip Diagnosis: Principal Procedures Left total hip arthroplasty Brief History This is a 86 year old female patient who presents with the following history. Patient complains of continued left hip pain. She has failed all non operative conservative care including medications, therapy, intra-articular steroid injection etc. She has continued pain that interferes with her ADLs and wanted to proceed forward with surgery. Imaging xrays of the left hip show severe osteoarthritis PE at Discharge seen by Dr. Rodolfo Randle left hip dressings dry and intact N/V intact Neg basim's sign;no calf tenderness No LLD Hospital Course Patient underwent satisfactory anaesthesia by the dept of anaesthesia. She underwent left total hip arthroplasty on date of admission. She was treated with low dose coumadin night before surgery and will continue with coumadin for four weeks post operatively to prevent DVT. She did well following her procedure. She was started with full weight bearing ambulation on pod #1. She was also followed by medical during her stay. She progressed well and was discharged home with home health care on pod #3. Pt Condition on Discharge: Stable Discharge Disposition: Disch w/ Home Health Serv Discharge Instructions Diet Instructions: Coumadin (Warfarin) Diet Activities You Can Perform: Weight Bearing as Caron Cerda Dec 05, 2016 17:14
== END 2016-11-14 14:07 | disposition home health service (06) | DRG 470 ==
LOC: HSDI 11-11 10:18 → N06B 11-11 17:57
PROVIDERS: ADMIT Orthopaedic Surgery Orthopaedic Surgery of the Spine; ATTEND Orthopaedic Surgery Orthopaedic Surgery of the Spine
PROC: 0SRB0JA Replacement of Left Hip Joint with Synthetic Substitute, Uncemented, Open Approach (ICD-10-PCS; principal; 2016-11-11 12:14)
DX: M16.9 Osteoarthritis of hip, unspecified (principal); R65.10 Systemic inflammatory response syndrome (SIRS) of non-infectious origin without acute organ dysfunction; Z96.641 Presence of right artificial hip joint; I10 Essential (primary) hypertension; M16.12 Unilateral primary osteoarthritis, left hip; E78.5 Hyperlipidemia, unspecified; K21.9 Gastro-esophageal reflux disease without esophagitis; Z85.3 Personal history of malignant neoplasm of breast; I89.0 Lymphedema, not elsewhere classified; Z85.828 Personal history of other malignant neoplasm of skin; Z79.82 Long term (current) use of aspirin; K59.00 Constipation, unspecified
CPT/HCPCS: 73501; 80053; 81001; 83735; 84100; 85025; 85610; 86850; 86900; 86901; 86920; 94150; C1776; J0131; J0690; J1580; J2270; J2405; J2710; J3010; J3370; J7050; J7120; L1830

== ENCOUNTER → 2016-11-01 | Outpatient (CLI) | payer MEDICARE, BC ==
[~2016-11-01] MED LIST: ACET500C PO; AMLO2.5T PO; ASPI-147 PO; ASPI81 PO; BEDSIDE COMMODE1 MI1; CAL-150C PO; CALC PO; CENTTAB PO; CENTTAB9 PO; CHOL20003 PO; COZA100T PO; CYAN1TAB24 PO; FLOR250C PO; GAS-80CH CHEW; LOSA100T PO; LUTE25CA PO; NORC5TAB PO; OMEP20CA5 PO; OMEP20TA PO; TYLE500T PO; VITA-13 PO
[2016-11-01 09:53] LABS: BLOOD, URINE NEG (NEG); GLUCOSE,URINE NEG (NEG); KETONE, URINE NEG (NEG); NITRITE,URINE NEG (NEG); PH, URINE 6.5 (5.0-8.5); URINE COLOR YELLOW (YELLW/STRAW)
[2016-11-01 09:54] LABS: COMMENT (UR) CATH-CULT NOT IND; CULTURE IF INDICATED CATH CULTURE NOT IND
[2016-11-01 09:54] LABS: AUTOMATED NEUTROPHIL # 5.4 TH/MM3 (1.8-7.7); BASOPHIL % 0.3 % (0.0-2.0); EOSINOPHIL # 0.1 TH/MM3 (0-0.4); EOSINOPHIL % 0.8 % (0.0-4.0); HEMATOCRIT 42.2 % (35.0-46.0); HEMO FLAGS DIFF FINAL; LYMPH % 21.6 % (9.0-44.0); LYMPHOCYTE # 1.6 TH/MM3 (1.0-4.8); MEAN CELL VOLUME 95.3 FL (80.0-100.0); MEAN CORPUSCULAR HEMOGLOBIN 33.1 PG (27.0-34.0); MEAN CORPUSCULAR HGB CONC 34.7 % (32.0-36.0); MONO % 5.4 % (0.0-8.0); NEUT % 71.9 % (16.0-70.0); PLATELET COUNT 228 TH/MM3 (150-450); RED BLOOD COUNT 4.43 MIL/MM3 (4.00-5.30); RED CELL DISTRIBUTION WIDTH 12.1 % (11.6-17.2); WHITE BLOOD COUNT 7.5 TH/MM3 (4.0-11.0)
[2016-11-01 10:17] LABS: BICARBONATE 30.7 MEQ/L (21.0-32.0); POTASSIUM 4.3 MEQ/L (3.5-5.1)
== END ==
LOC: CPRE 09:00
PROVIDERS: ATTEND Orthopaedic Surgery Orthopaedic Surgery of the Spine
DX: Z01.810 Encounter for preprocedural cardiovascular examination (principal); Z01.812 Encounter for preprocedural laboratory examination; Z01.818 Encounter for other preprocedural examination; M16.9 Osteoarthritis of hip, unspecified
CPT/HCPCS: 36415; 80048; 81001; 85025

== ENCOUNTER 2017-08-13 10:27 | Emergency (ER) | payer OTHER, MEDICARE, BC ==
[~2017-08-13] VITALS: Ht 160 cm; Wt 89.0 kg
[~2017-08-13 10:27] MED LIST changes: -ACET500C PO; -ASPI-147 PO; -ASPI81 PO; -CALC PO; -CENTTAB PO; -CENTTAB9 PO; -CHOL20003 PO; -COZA100T PO; +D200CAP2 PO; -OMEP20CA5 PO; -OMEP20TA PO; +OMEP20TA93 PO; -TYLE500T PO; -VITA-13 PO
[2017-08-13 10:44] VITALS: BP 168/77; PULSE 99; RESP 18; TEMP 98; O2SAT 99
[2017-08-13] MEDS ORDERED: CALC1TAB87 PO (10:56)
[2017-08-13] MEDS ORDERED: MULT10CA PO (10:56)
[2017-08-13] MEDS ORDERED: DIPHTH/TETANUS/ACEL PERTUSSIS (BOOSTER) 0.5 ML VIAL/PFS IM ONE (11:15)
[2017-08-13] MEDS ORDERED: ACETAMINOPHEN 325 MG TAB PO ONE (11:15)
[2017-08-13] MEDS ORDERED: ASPI-516 CHEW (11:17)
--- NOTE | 2017-08-13 11:28 | PD ---
HPI Chief Complaint: Fall Time Seen by Provider: 11:10 Travel History International Travel<30 days: No Contact w/Intl Traveler<30days: No Traveled to known affect area: No History of Present Illness HPI Patient is an 86-year-old female who presents to emergency room for evaluation of a fall. Patient reports that she missed the curb and tripped over it. Patient reports that when she landed, she landed on her knees bilaterally as well as her left shoulder. Patient reports that when she fell, the rim her glasses caused a laceration above her left eye brow. Patient reports that she does take a baby aspirin per day. Patient denies any loss of consciousness, denies any headache or dizziness at this time. Patient was able to ambulate after her fall today. Patient denies any chest pain or shortness of breath, denies any abdominal pain, no other complaints at this time. PFSH Past Medical History Hx Anticoagulant Therapy: Yes Arthritis: Yes Asthma: No Blood Disorders: No Heart Rhythm Problems: No Cancer: Yes (LEFT BREAST, SKIN) Cardiovascular Problems: Yes (LYMPHEDEMA) High Cholesterol: No Chemotherapy: No Chest Pain: No Congestive Heart Failure: No COPD: No Cerebrovascular Accident: No Diabetes: No Diminished Hearing: No Endocrine: No Gastrointestinal Disorders: Yes (GASTROPARESIS, DIVERTICULOSIS, REFLUX) GERD: Yes Genitourinary: No Hepatitis: No Hiatal Hernia: Yes Hypertension: Yes Immune Disorder: No Implanted Vascular Access Dvce: Yes Musculoskeletal: Yes (OA) Neurologic: No Psychiatric: No Reproductive: No Respiratory: No Immunizations Current: No Myocardial Infarction: No Radiation Therapy: Yes Thyroid Disease: No Tetanus Vaccination: Unknown Influenza Vaccination: Yes ?: Not Menopausal: Yes Past Surgical History Abdominal Surgery: Yes (APPENDECTOMY, CHOLECYSTECTOMY) AICD: No Appendectomy: Yes Cardiac Surgery: No Ear Surgery: No Endocrine Surgery: No Eye Surgery: Yes (BILAT CATARACTS 2013) Genitourinary Surgery: No Gynecologic Surgery: Yes (HYSTERECTOMY, OVARIAN CYST REMOVED) Hysterectomy: Yes Joint Replacement: Yes (RT HIP) Mastectomy: Yes (left lumpectomy) Neurologic Surgery: Yes Oral Surgery: Yes (TONSILLECTOMY) Pacemaker: No Thoracic Surgery: No Tonsillectomy: Yes Other Surgery: Yes (LUMPECTOMY LEFT BREAST) Social History Alcohol Use: Yes (WINE WITH DINNER) Tobacco Use: No Substance Use: No Allergies-Medications (Allergen,Severity, Reaction): Coded Allergies: erythromycin base (Unverified Allergy, Severe, STOMACH UPSET, 08/13/17) amoxicillin (Unverified Adverse Reaction, Severe, Diarrhea, 08/13/17) epinephrine (Unverified Adverse Reaction, Severe, INCREASE HEART RATE, ) Uncoded Allergies: SPLENDA (Allergy, Severe, Swelling, 11/20/12) Reported Meds & Prescriptions Reported Meds & Active Scripts Active Tylenol-Codeine #3 (Acetaminophen-Codeine) 300-30 mg Tab 1 Tab PO Q4H PRN Doxycycline Hyclate 100 Mg Cap 100 Mg PO BID Reported Aspirin 81 Mg Chew 81 Mg CHEW DAILY Preservision Areds 2 Softgel (Vit C/E/Zn/Coppr/Lutein/Zeaxan) 250-200-40 Capsule 2 Cap PO DAILY Calcium 600 with Vitamin D (Calcium Carbonate-Cholecalciferol) 600-400 mg-Unit Tab 3 Tab PO DAILY B12 (Cyanocobalamin) 1,000 Mcg Tab 500 Mcg PO DAILY D3 (Cholecalciferol) 2,000 Unit Cap 200 Units PO DAILY Florastor (Saccharomyces Boulardii) 250 Mg Cap 250 Mg PO DAILY Amlodipine (Amlodipine Besylate) 2.5 Mg Tab 2.5 Mg PO DAILY Losartan (Losartan Potassium) 100 Mg Tab 100 Mg PO DAILY Review of Systems General / Constitutional: No: Fever Eyes: No: Visual changes HENT: No: Headaches Cardiovascular: No: Chest Pain or Discomfort Respiratory: No: Shortness of Breath Gastrointestinal: No: Abdominal Pain Genitourinary: No: Dysuria Musculoskeletal: Positive: Pain (bilateral knee pain, left shoulder pain) Skin: No Rash Neurologic: No: Weakness Psychiatric: No: Depression Endocrine: No: Polydipsia Hematologic/Lymphatic: No: Easy Bruising Physical Exam Narrative GENERAL: mild distress SKIN: Focused skin assessment warm/dry. Patient with a 4cm linear laceration above left eyebrow HEAD: Atraumatic. Normocephalic. EYES: Pupils equal and round. No scleral icterus. No injection or drainage. ENT: No nasal bleeding or discharge. Mucous membranes pink and moist. NECK: Trachea midline. No JVD. CARDIOVASCULAR: Regular rate and rhythm. No murmur appreciated. RESPIRATORY: No accessory muscle use. Clear to auscultation. Breath sounds equal bilaterally. GASTROINTESTINAL: Abdomen soft, non-tender, nondistended. Hepatic and splenic margins not palpable. MUSCULOSKELETAL: No obvious deformities. No clubbing. No cyanosis. Patient with swelling and bruising to bilateral knees, normal range of motion, no obvious deformities, pulses intact, neurovascularly intact NEUROLOGICAL: Awake and alert. No obvious cranial nerve deficits. Motor grossly within normal limits. Normal speech. PSYCHIATRIC: Appropriate mood and affect; insight and judgment normal. Data Data Last Documented VS Vital Signs Date Time Temp Pulse Resp B/P (MAP) Pulse Ox O2 Delivery O2 Flow Rate FiO2 08/13/17 12:17 18 08/13/17 10:44 98.0 99 168/77 (107) [address] Brain W/O Iv Contrast(Rout) (08/13/17 11:14) Ct Cerv Spine W/O Contrast (08/13/17 11:14) Ct Facial Bones W/O Iv Cont (08/13/17 11:14) Wound Care (08/13/17 11:14) [id number] (Booster) Inj (Boostrix (08/13/17 11:15) Knee, Complete (4vws) (08/13/17 ) Knee, Complete (4vws) (08/13/17 ) Shoulder, Complete (>2vws) (08/13/17 ) Acetaminophen (Tylenol) (08/13/17 11:15) Lidocaine 1% Inj (50 Ml) (Xylocaine 1% I (08/13/17 11:45) Doxycycline (Vibramycin) (08/13/17 12:45) MDM Medical Decision Making Medical Screen Exam Complete: Yes Emergency Medical Condition: Yes Medical Record Reviewed: Yes Interpretation(s) Vital Signs Date Time Temp Pulse Resp B/P (MAP) Pulse Ox O2 Delivery O2 Flow Rate FiO2 08/13/17 10:44 98.0 99 18 168/77 (107) 99 Differential Diagnosis Intracranial hemorrhage, cervical spine fracture, shoulder sprain, knee sprain/ fracture Narrative Course During the course of the patients emergency department visit, the patients history, examination, and differential diagnosis were reviewed with the patient. The patient was initially provided tetanus booster Radiology studies were reviewed and remarkable for: Last Impressions Maxillofacial CT 08/13/17 1114 Signed Impressions: Service Date/Time: Sunday, August 13, 2017 11:28 - CONCLUSION: 1. Fracture of the nasal bone and deviation of the nasal septum towards the left. The remainder of the visualized bony structures are intact. 2. Note is made of a hematoma within the scalp along the left for head. Will Rasmussen MD Head CT 08/13/17 1114 Signed Impressions: Service Date/Time: Sunday, August 13, 2017 11:28 - CONCLUSION: Cephalhematoma left fundal region otherwise negative. Kobe Rasmussen MD FACR Cervical Spine CT 08/13/17 1114 Signed Impressions: Service Date/Time: Sunday, August 13, 2017 11:28 - CONCLUSION: 1. Moderate degenerative changes within the cervical spine. No acute abnormality. Will Rasmussen MD Patient with a nasal bone fracture with deviation of the nasal septum towards the left. Plan to start patient on antibiotics. Patient will need to follow- up with ENT as outpatient. Last Impressions Maxillofacial CT 08/13/17 1114 Signed Impressions: Service Date/Time: Sunday, August 13, 2017 11:28 - CONCLUSION: 1. Fracture of the nasal bone and deviation of the nasal septum towards the left. The remainder of the visualized bony structures are intact. 2. Note is made of a hematoma within the scalp along the left for head. Will Rasmussen MD Head CT 08/13/17 1114 Signed Impressions: Service Date/Time: Sunday, August 13, 2017 11:28 - CONCLUSION: Cephalhematoma left fundal region otherwise negative. Kobe Rasmussen MD FACR Cervical Spine CT 08/13/17 1114 Signed Impressions: Service Date/Time: Sunday, August 13, 2017 11:28 - CONCLUSION: 1. Moderate degenerative changes within the cervical spine. No acute abnormality. Will Rasmussen MD Shoulder X-Ray 08/13/17 0000 Signed Impressions: Service Date/Time: Sunday, August 13, 2017 11:39 - CONCLUSION: Degenerative changes. Kannan Fenton MD Knee X-Ray 08/13/17 0000 Signed Impressions: Service Date/Time: Sunday, August 13, 2017 11:39 - CONCLUSION: Degenerative changes of the knee. Kannan Fenton MD Knee X-Ray 08/13/17 0000 Signed Impressions: Service Date/Time: Sunday, August 13, 2017 11:39 - CONCLUSION: Chondrocalcinosis and mild degenerative changes. Prepatellar soft tissue swelling. Kannan Fenton MD X-ray of the knees were reviewed, patient will have sutures removed in 7 days, she'll return to emergency if she develops any signs of infection. Procedures Procedure Narrative LACERATION LOCATION: above left eye brow LENGTH: 4cm NUMBER OF STITCHES/GEORGE: 6 total stitches REPAIR: The area of the laceration was prepped with Betadine and sterilely draped. The laceration was infiltrated with 1% lidocaine. The wound was copiously irrigated and explored without evidence of foreign body, tendon injury or neurovascular injury. The wound was closed using 2 sutures - 6.0 fast absorbing plain gut, the outer layers repaired with 4 sutures using 5. 0 nylon sutures. This was a double layer repair. A sterile dressing was applied. The patient was advised to keep the dressing clean and dry. Patient tolerated the procedure well. Diagnosis Primary Impression: Head injury Qualified Codes: S09.90XA - Unspecified injury of head, initial encounter Additional Impressions: Facial laceration Qualified Codes: S01.81XA - Laceration without foreign body of other part of head, initial encounter Knee sprain, bilateral Sprain of shoulder, left Qualified Codes: S43.402A - Unspecified sprain of left shoulder joint, initial encounter Nasal bone fracture Qualified Codes: S02.2XXA - Fracture of nasal bones, initial encounter for closed fracture Referrals: Jamie Johnson MD Patient Instructions: Acute Wound Care (DC), General Instructions Additional Instructions: Please provide patient with a copy of their lab work and studies at discharge* * Please follow up with your primary care doctor in 2-3 days Return to the ER if symptoms worsen or progress Return to the ER as needed Suture removal in 7 days - please keep area clean with bacitracin dressings Return to the emergency room if you develop any signs of infection Please follow up with ENT as you do have a nasal bone fracture Do not drive or operate heavy machinery while taking narcotic pain medications Med/Other Pt SpecificInfo: Prescription(s) given Scripts Acetaminophen-Codeine (Tylenol-Codeine #3) 300-30 mg Tab 1 TAB PO Q4H Y for PAIN, #12 TAB 0 Refills Prov: Niesha Ponce DO 08/13/17 Doxycycline Hyclate (Doxycycline Hyclate) 100 Mg Cap 100 MG PO BID for Infection, #20 CAP 0 Refills Prov: Niesha Ponce DO 08/13/17 Disposition: 01 DISCHARGE HOME Condition: Stable Niesha Ponce DO Aug 13, 2017 11:28
[2017-08-13] MEDS ORDERED: LIDOCAINE HCL 1% 50 ML VIAL INFIL ONE (11:45)
--- NOTE | 2017-08-13 11:56 | RADRPT ---
EXAM DATE/TIME: 08/13/2017 11:28 [facility] COMPARISON: No previous studies available for comparison. INDICATIONS : Trauma. Fell this morning. Laceration at left eyebrow. Facial abrasions. RADIATION DOSE: 64.12 CTDIvol (mGy) MEDICAL HISTORY : Hypertension. Carcinoma, breast. SURGICAL HISTORY : Appendectomy. Hysterectomy. ENCOUNTER: Initial ACUITY: 1 day PAIN SCALE: 7/10 LOCATION: Left frontal TECHNIQUE: Multiple contiguous axial images were obtained of the head. Using automated exposure control and adj ustment of the mA and/or kV according to patient size, radiation dose was kept as low as reasonably a chievable to obtain optimal diagnostic quality images. DICOM format image data is available electro nically for review and comparison. FINDINGS: CEREBRUM: The ventricles are normal for age. No evidence of midline shift, mass lesion, hemorrhage or acute in farction. No extra-axial fluid collections are seen. POSTERIOR FOSSA: The cerebellum and brainstem are intact. The 4th ventricle is midline. The cerebellopontine angle i s unremarkable. EXTRACRANIAL: The visualized portion of the orbits is intact. SKULL: The calvaria is intact. No evidence of skull fracture. Cephalhematoma left focal region CONCLUSION: Cephalhematoma left fundal region otherwise negative. Kobe Rasmussen MD FACR on August 13, 2017 at 11:54 Board Certified Radiologist. This report was verified electronically.
--- NOTE | 2017-08-13 12:14 | RADRPT ---
EXAM DATE/TIME: 08/13/2017 11:28 [facility] COMPARISON: CT ABDOMEN & PELVIS W CONTRAST, June 29, 2015, 1:35. INDICATIONS : Trauma. Fell this morning. Laceration at left eyebrow. Facial abrasions. RADIATION DOSE: 25.52 CTDIvol (mGy) MEDICAL HISTORY : Hypertension. Carcinoma, breast. SURGICAL HISTORY : Appendectomy. Hysterectomy. ENCOUNTER: Initial ACUITY: 1 day PAIN SCORE: 7/10 LOCATION: Left facial TECHNIQUE: Volumetric scanning of the facial bones was performed. Using automated exposure control and adjustme nt of the mA and/or kV according to patient size, radiation dose was kept as low as reasonably achiev able to obtain optimal diagnostic quality images. DICOM format image data is available electronicall y for review and comparison. FINDINGS: ORBITS: The orbital and infraorbital osseous structures are intact. The retroconal structures have a normal configuration. No radiopaque foreign bodies are seen. NASAL BONE: The exam demonstrates a comminuted fracture of the nasal bone. There is deviation of the nasal septum towards the left. ZYGOMATIC ARCHES: Symmetric without evidence of fracture. SINUSES: The maxillary, ethmoid and frontal sinuses are intact. No air-fluid levels seen. NASAL CAVITY: The nasal septum is intact and midline. The lacrimal ducts are intact. SOFT TISSUES: No radiopaque foreign bodies seen. There is hematoma within the scalp along the left and central port ions of the for head INTRACRANIAL: No intracranial air seen. CRIBIFORM PLATE: Grossly intact. CONCLUSION: 1. Fracture of the nasal bone and deviation of the nasal septum towards the left. The remainder of th e visualized bony structures are intact. 2. Note is made of a hematoma within the scalp along the left for head. Will Rasmussen MD on August 13, 2017 at 12:08 Board Certified Radiologist. This report was verified electronically.
[2017-08-13 12:17] VITALS: RESP 18
--- NOTE | 2017-08-13 12:19 | RADRPT ---
EXAM DATE/TIME: 08/13/2017 11:28 [facility] COMPARISON: CT ABDOMEN & PELVIS W CONTRAST, June 29, 2015, 1:35. INDICATIONS : Trauma. Fell this morning. Laceration at left eyebrow. Facial abrasions. RADIATION DOSE: 26.06 CTDIvol (mGy) MEDICAL HISTORY : Hypertension. Carcinoma, breast. SURGICAL HISTORY : Appendectomy. Hysterectomy. ENCOUNTER: Initial ACUITY: 1 day PAIN SCALE: 0/10 LOCATION: neck TECHNIQUE: Volumetric scanning of the cervical spine was performed. Multiplanar reconstructions in the sagittal, coronal and oblique axial planes were performed. Using automated exposure control and adjustment o f the mA and/or kV according to patient size, radiation dose was kept as low as reasonably achievable to obtain optimal diagnostic quality images. DICOM format image data is available electronically f or review and comparison. FINDINGS: Sagittal and coronal reformats demonstrate adequate alignment. There are advanced degenerative change s in the atlantodens joint. There severe degenerative changes in the disc at C5-6 and C6-7. No acute fracture is seen. C2-C3: There is advanced facet arthritis bilaterally. The thecal space is adequate. The foramina appear adeq uate. C3-C4: There is severe facet arthritis on the left with degenerative facet hypertrophy. There is a degenerat ed disc with osteophytic ridging from the vertebral endplates. There is uncovertebral osteophyte and facet hypertrophy which results in severe bony foraminal narrowing on the left. There is mild foramin al narrowing on the right. The residual thecal space is adequate. C4-C5: There is a degenerated disc. There is moderate facet arthritis bilaterally. The thecal space and neur al foramina appear narrowed but adequate. C5-C6: There is a degenerated disc with osteophytic ridging from the vertebral endplates. There is uncoverte bral osteophyte resulting in mild narrowing of the lateral recess and basilar foramina bilaterally. T here is mild facet arthritis bilaterally. C6-C7: There is a degenerated disc with diffuse osteophytic ridging from the vertebral endplates. This just effaces the ventral thecal sac. Residual thecal space and foramina appear adequate. There is facet ar thritis bilaterally. C7-T1: There is mild facet arthritis bilaterally. Thecal space and foramina are adequate. CONCLUSION: 1. Moderate degenerative changes within the cervical spine. No acute abnormality. Will Rasmussen MD on August 13, 2017 at 12:13 Board Certified Radiologist. This report was verified electronically.
--- NOTE | 2017-08-13 12:22 | RADRPT ---
EXAM DATE/TIME: 08/13/2017 11:39 [facility] COMPARISON: No previous studies available for comparison. INDICATIONS : Right knee pain post fall. MEDICAL HISTORY : Carcinoma, breast. SURGICAL HISTORY : Right knee arthroscopy ENCOUNTER: Initial ACUITY: 1 day PAIN SCORE: 8/10 LOCATION: Right anterior knee FINDINGS: There is mild osteoarthritis of the knee with narrowing of the medial and lateral compartment, margin al osteophyte formation at the tibial plateau, medial and lateral aspects, spurring of the tibial spi omkar, and patellofemoral narrowing and osteophytosis. No effusion. Popliteal artery calcifications. Pa tellar enthesophyte formation. No fracture or dislocation. CONCLUSION: Degenerative changes of the knee. Kannan Fenton MD on August 13, 2017 at 12:20 Board Certified Radiologist. This report was verified electronically.
--- NOTE | 2017-08-13 12:22 | RADRPT ---
EXAM DATE/TIME: 08/13/2017 11:39 [facility] COMPARISON: No previous studies available for comparison. INDICATIONS : Left knee pain post fall MEDICAL HISTORY : Carcinoma, breast. SURGICAL HISTORY : None. ENCOUNTER: Initial ACUITY: 1 day PAIN SCORE: 5/10 LOCATION: Left anterior knee FINDINGS: Decreased bone density, chondrocalcinosis of the medial and lateral tibiofemoral compartments, mild s purring of the tibial spines. Moderate patellofemoral narrowing and osteophyte formation. Popliteal a rtery calcifications. Mild soft tissue swelling anterior to the patella. CONCLUSION: Chondrocalcinosis and mild degenerative changes. Prepatellar soft tissue swelling. Kannan Fenton MD on August 13, 2017 at 12:20 Board Certified Radiologist. This report was verified electronically.
--- NOTE | 2017-08-13 12:23 | RADRPT ---
EXAM DATE/TIME: 08/13/2017 11:39 [facility] COMPARISON: No previous studies available for comparison. INDICATIONS : Left shoulder pain post fall. MEDICAL HISTORY : Carcinoma, breast. SURGICAL HISTORY : None. ENCOUNTER: Initial ACUITY: 1 day PAIN SCORE: 5/10 LOCATION: Left anterior shoulder FINDINGS: Moderate hypertrophic changes of the acromioclavicular joint are noted. No fracture or dislocation. H igh riding humeral head. CONCLUSION: Degenerative changes. Kannan Fenton MD on August 13, 2017 at 12:21 Board Certified Radiologist. This report was verified electronically.
[2017-08-13] MEDS ORDERED: TYLETAB34 PO (12:34)
[2017-08-13] MEDS ORDERED: DOXY100C PO (12:34)
[2017-08-13] MEDS ORDERED: DOXYCYCLINE HYCLATE 100 MG CAP PO ONE (12:45)
[2017-08-13] MEDS ORDERED: BACITRACIN OINT 0.9 GM PKT TOPICAL ONE (12:45)
== END 2017-08-13 13:07 | disposition home or self-care (01) ==
LOC: PHED 10:27
DX: S02.2XXA Fracture of nasal bones, initial encounter for closed fracture (principal); S01.81XA Laceration without foreign body of other part of head, initial encounter; S83.91XA Sprain of unspecified site of right knee, initial encounter; S83.92XA Sprain of unspecified site of left knee, initial encounter; S43.402A Unspecified sprain of left shoulder joint, initial encounter; W10.1XXA Fall (on)(from) sidewalk curb, initial encounter; Z23 Encounter for immunization
CPT/HCPCS: 12052; 70450; 70486; 72125; 73030; 73564; 90471; 90715

== ENCOUNTER 2017-11-28 05:59 | Day surgery (SDC) | payer MEDICARE, BC ==
[2017-11-28] VITALS (11 sets, daily range): BP systolic 133–145; BP diastolic 62–78; PULSE 68–82; RESP 16–17; TEMP 98.1–98.4; O2SAT 98
[~2017-11-28] VITALS: Ht 162.6 cm; Wt 62.0 kg
[~2017-11-28 05:59] MED LIST changes: +ASPI-516 CHEW; -BEDSIDE COMMODE1 MI1; -CAL-150C PO; +CALC1TAB87 PO; +DOXY100C PO; -GAS-80CH CHEW; -LUTE25CA PO; +MULT10CA PO; -NORC5TAB PO; -OMEP20TA93 PO; +TYLETAB34 PO
[2017-11-28] MEDS ORDERED: IOHEXOL 350 MG/ML 100 ML BTL (for Cath Lab) OTHER ONE (06:00)
[2017-11-28] MEDS ORDERED: ASPIRIN 81 MG CHEW TAB PO SCH (06:15)
[2017-11-28 06:43] LABS: AUTOMATED NEUTROPHIL # 2.6 TH/MM3 (1.8-7.7); BASOPHIL % 0.8 % (0.0-2.0); EOSINOPHIL # 0.1 TH/MM3 (0-0.4); EOSINOPHIL % 1.9 % (0.0-4.0); HEMATOCRIT 39.2 % (35.0-46.0); HEMOGLOBIN 13.6 GM/DL (11.6-15.3); LYMPH % 38.2 % (9.0-44.0); LYMPHOCYTE # 1.9 TH/MM3 (1.0-4.8); MEAN CELL VOLUME 96.1 FL (80.0-100.0); MEAN CORPUSCULAR HEMOGLOBIN 33.4 PG (27.0-34.0); MEAN CORPUSCULAR HGB CONC 34.8 % (32.0-36.0); MEAN PLATELET VOLUME 8.4 FL (7.0-11.0); MONO % 7.6 % (0.0-8.0); MONOCYTE # 0.4 TH/MM3 (0-0.9); NEUT % 51.5 % (16.0-70.0); PLATELET COUNT 205 TH/MM3 (150-450); RED BLOOD COUNT 4.07 MIL/MM3 (4.00-5.30); RED CELL DISTRIBUTION WIDTH 13.1 % (11.6-17.2)
[2017-11-28] MEDS ORDERED: CENTCHW4 CHEW (06:46)
[2017-11-28] MEDS ORDERED: HEPARIN-NS/PF FLUSH BAG 2,000 ML IV FLUSH ONE (06:47)
[2017-11-28 06:53] LABS: PROTHROMBIN TIME - PATIENT 10.2 SEC (9.8-11.6)
[2017-11-28 07:04] LABS: BICARBONATE 25.7 MEQ/L (21.0-32.0); CALCIUM 9.3 MG/DL (8.5-10.1); CREATININE 0.9 MG/DL (0.50-1.00)
[2017-11-28] MEDS: NS 1000P @30 MLS/HR (KVO) IV SCH (07:15)
[2017-11-28] MEDS ORDERED: MIDAZOLAM HCL 2 MG/2 ML VIAL ONE (07:40)
[2017-11-28] MEDS ORDERED: MIDAZOLAM HCL 2 MG/2 ML VIAL IV ONE (07:42)
[2017-11-28] MEDS ORDERED: HEPARIN SODIUM - IV 10,000 UNITS/10 ML VIAL IV ONE (07:52)
[2017-11-28] MEDS ORDERED: NITROGLYCERIN 1000 MCG/5 ML VIAL OTHER PRN (07:52)
[2017-11-28] MEDS ORDERED: TIROFIBAN INFUSION INJ 250 ML IV ONE (08:14)
[2017-11-28] MEDS ORDERED: NITROGLYCERIN INJ 5 ML ONE (08:14)
[2017-11-28] MEDS ORDERED: HEPARIN SODIUM - IV 10,000 UNITS/10 ML VIAL ONE (08:14)
[2017-11-28] MEDS ORDERED: CLOPIDOGREL 300 MG TAB ONE (08:14)
[2017-11-28] MEDS ORDERED: ASPIRIN 81 MG CHEW TAB ONE (08:14)
[2017-11-28] MEDS: ASPIRIN 81 MG CHEW TAB PO SCH (08:19)
[2017-11-28] MEDS ORDERED: TIROFIBAN BOLUS INJ 100 ML IV ONE (08:22)
--- NOTE | 2017-11-28 08:50 | CATHPROC ---
[facility] [employer] HIS Report Study Information Study Number Admission Scheduled Start Study Start [id number] Nov 28 2017 5:59AM 11/28/2017 Nov 28 2017 6:55AM [facility] Cardiac Catheterization Admit Source Facility Department Other [facility] Physician and Clinical Staff Initial Abiodun Emmanuel RN, Herlinda Matthews RN Other cathlab, cathlab Recorder Adrianne Nolasco,RT(R) TECH2 Scrub Sara Sanz,HOSPITAL DIRECTOR TECH2 Procedures Performed Procedure Location (Site) Vessel Name Coronary Angiograms LCA Left Coronary Coronary Angiograms RCA Right Coronary PTCA OM2 Mid CIRC PTCA ADD ON'S Stent OM2 Lat CIRC Wire insertion Fem Art (right) Femoral Art Equipment Time Benefits Director Description Size Mfg Part Number Used/Scraped [id number] 07:51 [employer]I [employer] WIRE, ASAHI PROWATER 180CM 180CM Used *[id number] TRANSDUCER, TRUWAVE [id number] 06:56 DAS MURILLO * Used W/STOCKCOCK *[id number] 538-420 *[id number] 538-421 *[id number] [phone] *[id number] [phone] *[id number] 06:56 MEDLINE IND[employer] PACK, CCL CUSTOM * Used *[id number] 06:56 [employer] PACER PEN, SKIN DUAL W/ RULER * Used *[id number] 07:56 MEDTRONIC BALLOON, 2.0 X 6MM EUPHORA 6MM Used *[id number] 08:01 MEDTR[employer] BALLOON, 2.5 X 20MM EUPHORA 20MM Used *[id number] 08:04 MEDTRONIC STENT, 2.5 22 INTEGRITY 2.5 22 Used *[id number] 07:49 [employer] MEDICAL 30 MARIELA INDEFLATOR Used *[id number] 07:51 [employer] MEDICAL SHEATH, FR6.5 PRELUDE 11CM FR 6.5 038ACT Used *[id number] 06:56 [employer] MEDICAL WIRE, 3MMJ .035 180CM 180CM Used *[id number] 06:56 NAMIC MANIFOLD, 4 PORT * Used *[id number] 07:49 [employer]COMED OMNIPAQUE, 300 MG, 50ML 50ML [id number] Used 06:56 [employer]COMED OMNIPAQUE, 350 MG, 150ML 150ML [id number] Used 07:52 NYCOMED OMNIPAQUE, 350 MG, 50ML 50ML [id number] Used [id number] 06:56 [employer]YLE MEDICAL BLANKET,WARM AIR CCL * Used *[id number] 06:56 TERUMO MEDICAL SHEATH, FR4 TERUMO (10CM) FR 4 Used *[id number] Equipment Model, Serial, Lot Number and Expiration Data Description Model Number Serial Number Lot Number Expiration Date STENT, 2.5 22 INTEGRITY [id number] 07-30-2018 History: Current Medications Medication Dosage/Unit Route Frequency Last Date/Time Taken ASA History: Allergies Allergy Reaction epinephrine INCREASE HEART RATE erythromycin base STOMACH UPSET amoxicillin Diarrhea SPLENDA Swelling History: Risk Factors Family History of Hypertension Dyslipidemia Previous TN Previous Heart Failure Premature CAD Yes No Yes No No Prior Valve Prior PCI Prior CABG Surgery No No No Cerebrovascular Peripheral Artery Chronic Lung On Dialysis Diabetes Disease Disease Disease No No Yes No No History: Stress Tests Stress or Imaging Studies Performed Yes Standard Exercise Stress Test No Stress Echo No Stress Test SPECT Stress Test SPECT Result Yes Unavailable Stress Test CMR No Cardiac CTA Coronary Calcium Score No No History: Other Disease Selection Items HTN History: Other Current Smoker No Labs Hgb (g/dl) Hct (%) RBC (MIL/MM3) WBC (l/cumm) Platelets (thousands) 11.60-17.00 35.00-51.00 4.00-5.90 4.00-11.00 150.00-450.00 13.6 39.2 4 5 205 Glucose (mg/dl) BUN (mg/dl) Creatinine (mg/dl) BUN:Creatinine (1:x) 74.00-106.00 7.00-18.00 0.50-1.30 10.00-20.00 98 18 0.9 20 Na (meq/l) K (meq/l) Cl (meq/l) CO2 (mmol/L) Ca (mg/dl) 136.00-145.00 3.50-5.10 98.00-107.00 21.00-32.00 8.50-10.10 142 3.6 106 25.7 9.3 PT (sec) PTT (sec) INR (PTT:PT) 9.80-11.60 24.30-30.10 0.90-1.10 10.2 24.3 1 CPK-MB (ng/ML) 0.50-3.60 Not Drawn Medication Medication Total Dose (Bolus/Oral) Medication Total Dosage/Unit 1% XYLOCAINE 20 mL ANGIOMAX BOLUS 0 mL ASPIRIN 162 mg HEPARIN 4200 units PLAVIX 600 mg VERSED 1 mg Medications (Bolus/Oral) Medication Time Given Dosage/Unit Administered By Reason VERSED 11/28/2017 7:42:27 AM 1 mg Herlinda Rojas As per physicians verbal order 1 mg VERSED given in lab by Herlinda Rojas RN in Right Antecubital via Peripheral IV. Ordered by Abiodun Summers. Reason: As per physicians verbal order. 1% XYLOCAINE 11/28/2017 7:43:02 AM 20 mL Abiodun Cai For pain 20 mL 1% XYLOCAINE given in lab by Abiodun Cai in Right Groin via Subcutaneous. Ordered by Abiodun Sevilla. Reason: For pain. HEPARIN 11/28/2017 7:52:32 AM 4200 units Herlinda Rojas 4200 units HEPARIN given in lab by Herlinda Rojas RN in Right Antecubital via Peripheral IV. Ordere d by Abiodun Cai. ANGIOMAX BOLUS 11/28/2017 8:09:23 AM 0 mL Herlinda Rojas 0 mL ANGIOMAX BOLUS given in lab by Herlinda Rojas RN in Right Antecubital via Peripheral IV. ASPIRIN 11/28/2017 8:09:33 AM 162 mg Herlinda Rojas 162 mg ASPIRIN given in lab by Herlinda Rojas RN via Subcutaneous. Ordered by Abiodun Cai. PLAVIX 11/28/2017 8:09:58 AM 600 mg Herlinda Rojas 600 mg PLAVIX given in lab by Herlinda Rojas RN via Oral. Ordered by Abiodun Cai. Medication (Drip) Medication Time Given Dosage/Unit Concentration/Unit Diluent (ml) Solution AGGRASTAT DRIP 11/28/2017 8:09:52 AM 0.15 mcg/kg/min 12.5 mg 250 NaCl .9 0.15 mcg/kg/min AGGRASTAT DRIP given in lab by Herlinda Rojas RN in Right Antecubital via Periphera l IV. Pump/Drip Flow = 11.3 ml/hr using NaCl .9 with a concentration of 12.5 mg in 250 ml. IV Solutions 11/28/2017 7:22:31 AM 0 mL (IV) 500 NaCl .9 Patient arrived on IV Solutions given by cathlab cathlab in Right Antecubital via Peripheral IV. Pum p/Drip Flow = 20 ml/hr using NaCl .9. Ordered by Abiodun Cai. Initial Case Assessment Cardiovascular HR Rhythm NIBP Chest Pain 80 sr 159/110 0 Edema Present Skin color Skin None Normal Warm Dry Circulatory - Right Pulses Dorsalis Pedis Femoral 2 3 Scale (0,1,2,3,4,d) Circulatory - Left Pulses Dorsalis Pedis Femoral 2 2 Scale (0,1,2,3,4,d) Neurological State Oriented to time-place- Alert Moves all extremities person Respiration - General Respiration Rate SpO2 (%) (B/min) 18 98 Final Case Assessment Cardiovascular HR Rhythm NIBP Chest Pain 78 sr 152/75 0 Edema Present Skin color Skin None Normal Warm Dry Circulatory - Right Pulses Dorsalis Pedis Femoral 2 3 Scale (0,1,2,3,4,d) Circulatory - Left Pulses Dorsalis Pedis Femoral 2 2 Scale (0,1,2,3,4,d) Neurological State Oriented to time-place- Alert Moves all extremities person Respiration - General Respiration Rate SpO2 (%) (B/min) 18 98 Chronological Log Time Study Chronological Log 7:20:14 Patient arrived via Bed. 7:22:19 Patient Name, D.O.B, / Armband Verified By R.N. 7:22:21 Pre-op and post- op instructions given; patient acknowledges understanding of instructions. 7:22:22 Presedation assessment performed by [employer] RN. 7:22:26 Patient has been NPO for More than 6Hrs. 7:22:27 Skin Breakdown- none per patient 7:22:28 Patient Warmer Placed on the Table. 7:22:29 Lynne Prominences Protected 7:22:30 A # 20 IV was noted in the Antecubital (right). Grade = 0 Patient arrived on IV Solutions given by cathlab, cathlab in Right Antecubital via Peripheral I V. Pump/Drip Flow = 20 7:22:31 ml/hr using NaCl .9. Ordered by Abiodun Cai. 7:22:32 History and physical on the chart or being dictated. Vitals capture started with the following parameters, Patient=Adult, Interval=5 min, Initial Pr oygsnn=189 mmHg, 7:22:38 Deflation Rate=5 mmHg, Cuff placed on Right Ankle 7:23:57 HR=79 bpm, CQSV=390/81 mmhg, SpO2=97.0 %, Resp=18 B/min, Pain=0, Yunier=10, Echeverria=2 7:28:58 HR=87 bpm, BGPF=193/110 mmhg, SpO2=95.0 %, Resp=12 B/min, Pain=0, Yunier=10, Echeverria=2 Assessment: Initial Case, HR=80 BPM, Rhythm=sr, EHFH=413/110 mmhg, Chest Pain=0, Edema=None, Col or=Normal, Skin = Warm, Dry Right Pulses: Ernst Ped=2, Femoral=3 7:30:32 Left Pulses: Ernst Ped=2, Femoral=2 Neurological: State=Alert, Ox3, INIGUEZ Respiration: Resp=18 B/min, SpO2=98 % 7:31:05 Reference ECG taken 7:33:16 HR=80 bpm, RKJQ=265/81 mmhg, SpO2=98.0 %, Resp=14 B/min, Pain=0, Yunier=10, Echeverria=2 7:35:39 Reference ECG taken 7:35:46 Pressure channel 1 zeroed. 7:38:17 HR=76 bpm, PTMX=796/73 mmhg, SpO2=97.0 %, Resp=21 B/min, Pain=0, Yunier=10, Echeverria=2 7:39:14 MD arrived. 1 mg VERSED given in lab by Herlinda Rojas, NEO in Right Antecubital via Peripheral IV. Ordered by Abiodun Cai. 7:42:27 Reason: As per physicians verbal order. Time Out. Correct patient, correct procedure, correct physician, power injector not loaded with contrast with surgical 7:42:53 team present. Time Out Concurred by MD and individual staff in procedure. 7:43:00 Case Start 20 mL 1% XYLOCAINE given in lab by Abiodun Cai in Right Groin via Subcutaneous. Ordered by Ayala, 7:43:02 Abiodun. Reason: For pain. 7:43:14 HR=79 bpm, MGBP=700/79 mmhg, SpO2=97.0 %, Resp=10 B/min, Pain=0, Yunier=10, Echeverria=2 7:43:24 Access site was Right Femoral Artery. 7:43:29 A SHEATH, FR4 TERUMO (10CM) FR 4 was advanced into the Fem Art (right) using the Percutaneou s technique. A JR 4.0 INFINITI CATHETER FR 4 was advanced over a wire. OMNIPAQUE, 350 MG, 150ML 150ML was use d for 7:45:02 injections. Recorded Pressure: LV, HR=77, Condition=Condition 1 7:45:48 (Left Ventricle) LV 135/2/14 Recorded Pressure: LV, Ao, HR=82, Condition=Condition 1 7:45:56 (Left Ventricle) LV 157/-21/66, (Aorta) Ao 141/60/96 Recorded Pressure: Ao, HR=77, Condition=Condition 1 7:46:22 (Aorta) Ao 114/51/79 7:46:37 The RCA was injected and visualized at various angles. OMNIPAQUE, 350 MG, 150ML 150ML used. 7:47:25 Catheter was removed A JL 4.0 INFINITI CATHETER FR 4 was advanced over a wire. OMNIPAQUE, 350 MG, 150ML 150ML was use d for 7:47:26 injections. 7:48:19 HR=82 bpm, GEVY=000/68 mmhg, SpO2=93.0 %, Resp=4 B/min, Pain=0, Yunier=10, Echeverria=2 7:48:47 The LCA was injected and visualized at various angles. OMNIPAQUE, 350 MG, 150ML 150ML used. 7:48:55 Catheter was removed 7:48:57 OMNIPAQUE, 300 MG, 50ML 50ML and 30 MARIELA INDEFLATOR added. A SHEATH, FR6.5 PRELUDE 11CM FR 6.5 was exchanged in the Fem Art (right). This was necessary in order to 7:51:08 accomodate a larger catheter. 4200 units HEPARIN given in lab by Herlinda Rojas, RN in Right Antecubital via Peripheral IV. O rdered by Ayala, 7:52:32 Abiodun. 7:53:16 HR=78 bpm, CYZL=612/62 mmhg, SpO2=95.0 %, Resp=14 B/min, Pain=0, Ynuier=10, Echeverria=2 A XB 3.5 GUIDE CATHETER FR 6 was advanced over a wire. OMNIPAQUE, 350 MG, 150ML 150ML was used f or 7:54:06 injections. 7:55:41 A WIRE, ASAHI PROWATER 180CM 180CM was inserted via Fem Art (right). 7:56:50 A BALLOON, 2.0 X 6MM EUPHORA 6MM was inserted over WIRE, ASAHI PROWATER 180CM 180CM via the OM2 Mid. A BALLOON, 2.0 X 6MM EUPHORA 6MM over a WIRE, ASAHI PROWATER 180CM 180CM in the OM2 Mid was infl ated 7:57:02 using a 30 MARIELA INDEFLATOR at ~MARIELA~ mariela for ~SECONDS~ sec. 7:58:15 HR=81 bpm, IQPS=354/62 mmhg, SpO2=95.0 %, Resp=18 B/min, Pain=0, Yunier=10, Echeverria=2 7:58:50 Activated Clotting Time Drawn 8:01:51 A BALLOON, 2.5 X 20MM EUPHORA 20MM was inserted over WIRE, ASAHI PROWATER 180CM 180CM via t he OM2 Mid. A BALLOON, 2.5 X 20MM EUPHORA 20MM over a WIRE, ASAHI PROWATER 180CM 180CM in the OM2 Mid was i nflated 8:02:03 using a 30 MARIELA INDEFLATOR at ~MARIELA~ mariela for ~SECONDS~ sec. 8:03:14 HR=79 bpm, SUYY=240/72 mmhg, SpO2=92.0 %, Resp=16 B/min, Pain=0, Yunier=10, Echeverria=2 8:03:28 Balloon Removed. 8:04:51 ACT (Normal Range 90-180) = 242 An STENT, 2.5 22 INTEGRITY 2.5 22 Bare Metal Stent was inserted through a XB 3.5 GUIDE CATHETER FR 6 over a 8:05:10 WIRE, ASAHI PROWATER 180CM 180CM. A STENT, 2.5 22 INTEGRITY 2.5 22 was deployed using a 30 MARIELA INDEFLATOR at 10 atmospheres for 2 0 seconds in 8:05:22 the OM2 Lat. 8:05:59 Delivery device removed 8:08:17 HR=78 bpm, BCSR=475/75 mmhg, SpO2=97.0 %, Resp=12 B/min 8:09:23 0 mL ANGIOMAX BOLUS given in lab by Herlinda Rojas RN in Right Antecubital via Peripheral IV. 8:09:31 Wire removed 8:09:33 162 mg ASPIRIN given in lab by Herlinda Rojas, RN via Subcutaneous. Ordered by Sandy Cai 0.15 mcg/kg/min AGGRASTAT DRIP given in lab by Herlinda Rojas, NEO in Right Antecubital via Per ipheral IV. 8:09:52 Pump/Drip Flow = 11.3 ml/hr using NaCl .9 with a concentration of 12.5 mg in 250 ml. 8:09:52 Catheter was removed 8::58 600 mg PLAVIX given in lab by Herlinda Rojas, NEO via Oral. Ordered by Abiodun Cai. 8:11:47 Sterile dressing applied to site 8:12:30 No case complications noted. 8:12:43 Case End 8:15:51 Cine recording checked. Assessment: Final Case, HR=78 BPM, Rhythm=sr, CFCY=818/75 mmhg, Chest Pain=0, Edema=None, Color =Normal, Skin = Warm, Dry Right Pulses: Ernst Ped=2, Femoral=3 8:20:58 Left Pulses: Ernst Ped=2, Femoral=2 Neurological: State=Alert, Ox3, INIGUEZ Respiration: Resp=18 B/min, SpO2=98 % 8:21:40 DOCU called. Spoke to Wendy 8:22:51 Implantable Device card placed in patient's chart. 8:22:53 Bedside Report will be given. 8:24:19 Patient moved to [facility] End Study - Contrast Media Used In Study Contrast Total Opened (mL) Total Used (mL) Total Wasted (mL) Omnipaque 95 95 0 End Study - Maximum Contrast Load Max Contrast Load (mL) 349.0 End Study - Radiation Exposure Fluoro Time (minutes) 6.4 End Study - Patient Disposition Complications Transferred To Interventional Outcome No Telemetry Bed successful
[2017-11-28] MEDS ORDERED: BACITRACIN OINT 0.9 GM PKT TOP ONE (10:00)
[2017-11-28] MEDS ORDERED: CLOPIDOGREL 300 MG TAB PO ONE (10:00)
[2017-11-28] MEDS ORDERED: MISC INFORMATION XX ONE (10:00)
[2017-11-28] MEDS ORDERED: SODIUM CHLORIDE 0.9% FLUSH 10 ML FLUSH IV FLUSH PRN (10:00)
[2017-11-28] MEDS ORDERED: TIROFIBAN INFUSION INJ 250 ML IV SCH (10:15)
--- NOTE | 2017-11-28 12:25 | MR ---
cc: Abiodun Cai MD 11/28/2017 Left heart catheterization, left ventriculography, coronary angiography and PCI with bare metal stent of the second obtuse marginal vessel. INDICATIONS: High risk nuclear stress test, coronary artery disease, large reversible defect to the posterior wall, lateral wall, apex and moderate sized fixed defect in the posterolateral wall and apex. The patient was brought to the cardiac catheterization laboratory, prepped and draped in the usual sterile fashion. 10 mL of 1% Lidocaine was used to locally anesthetize the right common femoral artery. A 4 [place] sheath placed in the right common femoral artery. 4 [place] JR4, JL4 catheters were used to perform left and right coronary angiography, left ventriculography. FINDINGS: The LV pressure is 140/5-6, EF 60%. The right coronary artery is dominant. It has sequential 40% to 50% stenosis in the proximal segment. It supplies right to left collaterals to what appears to be several small distal posterolateral branches. Left main coronary artery has no significant disease angiographically. Left circumflex vessel has no significant disease angiographically. First obtuse marginal vessel is a medium sized vessel, which is torturous with no significant disease angiographically. The second obtuse marginal vessel is a large vessel, which is subtotally occluded in the proximal segment with NELI 1 and 2 flow into the distal vessel. LAD is transapical. There is a proximal 50% stenosis. First diagonal artery is a medium sized vessel with diffuse disease in the ostial proximal segment up to 50% angiographically. 4 [place] sheath was exchanged for a 6 [place] sheath. &0 units/kilo of heparin was given. ACT 242. A 6 [place] XB 3.5 guide and 0.014 [place] guidewire was placed into the proximal second obtuse marginal vessel. I was not able to advance the wire into the distal vessel. I used a Euphora balloon for wire support and was able to advance the wire into the distal OM. I then of the balloon, reestablished flow; however, there was still high grade, 95%, stenosis in the mid to distal vessel. I then predilated the vessel with a 2.5 x 20 Euphora balloon 1 inflation 6 atmospheres for 20 seconds. I then deployed a 2.5 x 22 Integrity stent 1 inflation 10 atmospheres for 20 seconds. Stenosis went from 99% with NELI 1 and 2 flow to 0% with NELI 3 flow. CONCLUSION: 1. A high risk nuclear stress test with large reversible defect in the posterolateral wall and apex, coronary artery disease , culprit subtotal occluded proximal second obtuse marginal vessel. 2. Otherwise moderate 2 vessel coronary artery disease in a right dominant system as detailed above. 3. systolic function, ejection fraction 60%. 4. Successful PCI with bare metal stent of the prox-mid second obtuse marginal vessel from 99% with NELI 1-2 flow to 0% with NELI 3 flow. 5. Recommend Plavix 600 mg p.o. load then 75 mg a day for 12-15 months, aspirin 162 mg daily. We will check fasting lipids. LFTs guidelines. The patient has been instructed by myself to be compliant with her aspirin and Plavix and to follow up with me on 12/01/2017. Abiodun Cai MD AWC/DL , 08:18 AM , 12:24 PM
[2017-11-28 13:00] LABS: ALBUMIN 4.1 GM/DL (3.4-5.0); DIRECT BILIRUBIN ADULT 0.1 MG/DL (0.0-0.2)
[2017-11-28 13:02] LABS: INDIRECT BILIRUBIN 0.3 MG/DL (0.0-0.8); TOTAL BILIRUBIN ADULT 0.4 MG/DL (0.2-1.0); TOTAL PROTEIN 7.2 GM/DL (6.4-8.2)
--- NOTE | 2017-11-28 17:58 | EKG ---
Date Performed: 11/28/2017 Time Performed: 06:47:02 PTAGE: 87 years EKG: Sinus rhythm . Inferior infarct - age undetermined Anterolateral ST-T changes may be due to myocardial ischemia Ab normal ECG Compared to PREVIOUS TRACING , the patient is no longer tachycardic. PREVIOUS TRACIN06/28/2015 23. 19.38 DOCTOR: Frannie Saldana Interpretating Date/Time 11/28/2017 17:57:02
[2017-11-28] MEDS: SODIUM CHLORIDE 0.9% FLUSH 10 ML FLUSH IV FLUSH SCH (21:00)
[2017-11-28] MEDS ORDERED: ATORVASTATIN 10 MG TAB PO SCH (21:00)
[2017-11-29] VITALS (11 sets, daily range): BP systolic 118–168; BP diastolic 76–81; PULSE 63–97; RESP 20; TEMP 98.6–98.8; O2SAT 67–98
[2017-11-29 04:28] LABS: AUTOMATED NEUTROPHIL # 4.2 TH/MM3 (1.8-7.7); BASOPHIL % 0.4 % (0.0-2.0); EOSINOPHIL # 0.1 TH/MM3 (0-0.4); EOSINOPHIL % 1.5 % (0.0-4.0); HEMATOCRIT 39.5 % (35.0-46.0); HEMOGLOBIN 13.5 GM/DL (11.6-15.3); LYMPH % 35.3 % (9.0-44.0); LYMPHOCYTE # 2.6 TH/MM3 (1.0-4.8); MEAN CELL VOLUME 95.7 FL (80.0-100.0); MEAN CORPUSCULAR HEMOGLOBIN 32.8 PG (27.0-34.0); MEAN CORPUSCULAR HGB CONC 34.3 % (32.0-36.0); MEAN PLATELET VOLUME 8.7 FL (7.0-11.0); MONO % 6.9 % (0.0-8.0); MONOCYTE # 0.5 TH/MM3 (0-0.9); NEUT % 55.9 % (16.0-70.0); PLATELET COUNT 202 TH/MM3 (150-450); RED BLOOD COUNT 4.12 MIL/MM3 (4.00-5.30); RED CELL DISTRIBUTION WIDTH 13.2 % (11.6-17.2); WHITE BLOOD COUNT 7.4 TH/MM3 (4.0-11.0)
[2017-11-29 04:56] LABS: BICARBONATE 27.1 MEQ/L (21.0-32.0); CALCIUM 8.4 MG/DL (8.5-10.1); CHOLESTEROL/ HDL RATIO 2.62 RATIO; CREATININE 0.76 MG/DL (0.50-1.00); HDL CHOLESTEROL 59.1 MG/DL (40.0-60.0)
[2017-11-29] MEDS: NS 1000P @30 MLS/HR (KVO) IV SCH (06:15)
[2017-11-29] MEDS: ASPIRIN 81 MG CHEW TAB PO SCH (08:21)
[2017-11-29] MEDS: SODIUM CHLORIDE 0.9% FLUSH 10 ML FLUSH IV FLUSH SCH (08:22)
[2017-11-29] MEDS ORDERED: CLOPIDOGREL 75 MG TAB PO SCH (09:00)
[2017-11-29] MEDS ORDERED: PLAV75TA29 PO (09:56)
== END 2017-11-29 11:41 | disposition home or self-care (01) ==
LOC: HDIC 05:59 → HDOC 05:59 → HCPC 12:28 → HDOC 11-29 11:41
PROVIDERS: ATTEND Internal Medicine Interventional Cardiology
DX: I25.10 Atherosclerotic heart disease of native coronary artery without angina pectoris (principal); I25.82 Chronic total occlusion of coronary artery; I10 Essential (primary) hypertension; Z79.01 Long term (current) use of anticoagulants; Z79.82 Long term (current) use of aspirin
CPT/HCPCS: 80048; 80061; 80076; 82550; 85002; 85025; 85610; 85730; 92928; 93005; 93458; 99152; 99153; C1725; C1769; C1876; C1887; C1893; J1644; J2250; J3246; J7030; 85347; Q9967